=== PATIENT | female | born 1975 | race Caucasian/White ===

== ENCOUNTER 2023-02-26 08:10 | Outpatient (CLI) | payer BC, SELFPAY | END 2023-02-26 08:11 | disposition home or self-care (01) | LOC: NFLDREF 02-27 17:49 | PROVIDERS: PCP Physician Assistant Medical; Referring Provider Physician Assistant Medical; Visit Provider Physician Assistant Medical | DX: Z00.00 Encounter for general adult medical examination without abnormal findings (principal); E11.9 Type 2 diabetes mellitus without complications; E03.9 Hypothyroidism, unspecified; I10 Essential (primary) hypertension; E66.01 Morbid (severe) obesity due to excess calories; E55.9 Vitamin D deficiency, unspecified | CPT/HCPCS: 80053; 80061; 82043; 82570; 82607; 84443 ==

== ENCOUNTER 2023-05-16 08:42 | Outpatient (CLI) | payer BC, SELFPAY | END 2023-05-16 08:43 | disposition home or self-care (01) | LOC: NFLDREF 05-17 12:21 | PROVIDERS: PCP Physician Assistant Medical; Referring Provider Physician Assistant Medical; Visit Provider Physician Assistant Medical | DX: M54.12 Radiculopathy, cervical region (principal); E87.1 Hypo-osmolality and hyponatremia; E87.5 Hyperkalemia; M62.838 Other muscle spasm; E11.9 Type 2 diabetes mellitus without complications; E13.9 Other specified diabetes mellitus without complications; E66.01 Morbid (severe) obesity due to excess calories; I48.20 Chronic atrial fibrillation, unspecified | CPT/HCPCS: 83735 ==

== ENCOUNTER 2023-06-17 08:55 | Outpatient (CLI) | payer BC, SELFPAY | END 2023-06-17 08:56 | disposition home or self-care (01) | LOC: NFLDREF 06-18 10:46 | PROVIDERS: PCP Physician Assistant Medical; Referring Provider Physician Assistant Medical; Visit Provider Physician Assistant Medical | DX: M54.12 Radiculopathy, cervical region (principal) | CPT/HCPCS: 80053; 86039; 86140; 86200; 86431; 86812 ==

== ENCOUNTER 2023-06-25 09:15 | Outpatient (RCR) | payer BC, SELFPAY | END 2023-09-05 11:26 | disposition home or self-care (01) | PROVIDERS: PCP Physician Assistant Medical; Visit Provider Physician Assistant Medical | DX: M54.12 Radiculopathy, cervical region (principal); M54.2 Cervicalgia; Z51.89 Encounter for other specified aftercare | CPT/HCPCS: 97110; 97140; 97161 ==

== ENCOUNTER 2024-08-13 10:05 | Outpatient (CLI) | payer BC, SELFPAY | END 2024-08-13 10:06 | disposition home or self-care (01) | LOC: NFLDREF 08-19 01:05 | PROVIDERS: PCP Physician Assistant Medical; Visit Provider Physician Assistant Medical | DX: I10 Essential (primary) hypertension (principal); E03.9 Hypothyroidism, unspecified; E11.9 Type 2 diabetes mellitus without complications; I48.20 Chronic atrial fibrillation, unspecified; E66.01 Morbid (severe) obesity due to excess calories; F32.A Depression, unspecified; F41.9 Anxiety disorder, unspecified; J02.9 Acute pharyngitis, unspecified | CPT/HCPCS: 80053; 82043; 82570; 82607; 84443 ==

== ENCOUNTER 2024-09-07 16:38 | Outpatient (CLI) | payer BC, SELFPAY | END 2024-09-07 16:39 | disposition home or self-care (01) | LOC: NFLDUCREF 16:38 | PROVIDERS: PCP Physician Assistant Medical; Visit Provider Nurse Practitioner Family | DX: R30.0 Dysuria (principal) | CPT/HCPCS: 87086 ==

== ENCOUNTER 2024-09-19 12:06 | Emergency (ER) | payer BC, SELFPAY ==
[2024-09-19] VITALS (9 sets, daily range): BP systolic 125–154; BP diastolic 88–98; PULSE 82–111; RESP 14–20; TEMP 35.9; O2SAT 95–97; BMI 41.9
--- OUTSIDE RECORDS SUMMARY | 2024-09-19 12:08 | XMS_ITS | Clinical Summary ---
Author Organization [place] [facility] [place] [address] Care Team Providers Care Head Orthopedic Team Physician Name Role Phone Stephanie Hubbard PA-C Primary Care Provider Allergies Active Allergy Reactions Criticality Noted Date Comments Codeine Itching 08/30/2005 Paroxetine Nausea 08/28/2006 Sulfa Antibiotics Swelling 10/14/2015 tongue Medications LEVOTHYROXINE SODIUM PO Take 100 mcg by mouth daily Active OMEPRAZOLE PO Take 20 mg by mouth every morning Active AMLODIPINE BESYLATE PO Take 10 mg by mouth daily Active FLUOXETINE HCL PO Take 40 mg by mouth daily Active metoprolol succinate ER (TOPROL XL) 100 MG 24 hr tablet Take 100 mg by mouth daily Active valsartan (DIOVAN) 160 MG tablet Take 160 mg by mouth 2 times daily Active dapagliflozin (FARXIGA) 10 MG TABS tablet Take 10 mg by mouth daily Active liraglutide (VICTOZA) 18 MG/3ML solution Inject 1.2 mg Subcutaneous daily Active acetaminophen (TYLENOL) 325 MG tablet Take 325-650 mg by mouth every 6 hours as needed for mild pain Active HYDROmorphone (DILAUDID) 2 MG tabletIndications :S/P cervical spinal fusion Take 1-2 tablets (2-4 mg) by mouth every 4 hours as needed for moderate to severe pain 28 tablet 08/15/19 24 Active methocarbamol (ROBAXIN) 750 MG tabletIndications :S/P cervical spinal fusion Take 1 tablet (750 mg) by mouth every 6 hours as needed for muscle spasms (muscle spasm) 60 tablet 08/15/19 24 Active rivaroxaban ANTICOAGULANT (XARELTO) 20 MG TABS tabletIndications :Atrial fibrillation, unspecified type (H) Take 1 tablet (20 mg) by mouth daily (with dinner) 08/19/19 24 Active Social History Tobacco Use Types Packs/Day Years Used Date Smoking Tobacco: Former Cigarettes Q uit: 2006 Smokeless Tobacco: Never Tobacco Cessation:Counseling Given: Not Answered Alcohol Use Standard Drinks/Week Comments Yes 0 (1 standard drink = 0.6 oz pur e alcohol) 1-2/week Adolescent Education Answer Date Record ed Getting School Help Needed Not on file 08/08 Comments No Sex and Gender Information Value Date Recorded Sex Assigned at Not on file Legal Sex Female 4:41 AM PARCEL CARRIER Gender Identity Not on file Sexual Orientation Not on file Last Filed Vital Signs Vital Sign Reading Time Taken Comments Blood Pressure 127/63 08/16/2023 10:09 AM PARCEL CARRIER Pulse 72 08/16/2023 8:27 AM PARCEL CARRIER Temperature 36.3 C (97.3 F) 08/16/2023 7:23 AM PARCEL CARRIER Respiratory Rate 16 08/16/2023 10:2 6 AM PARCEL CARRIER Oxygen Saturation 99% 08/16/2023 8:27 AM PARCEL CARRIER Inhaled Oxygen Concentration - - Weight 112.2 kg (247 lb 4.8 oz) 08/15/2023 9:59 AM PARCEL CARRIER Height 162.6 cm (5' 4.02) 08/15/2023 9:59 AM CS T Body Mass Index 42.43 08/15/2023 9:59 AM PARCEL CARRIER Plan of Treatment Health Maintenance Due Date Last Done Comments ADVANCE CARE PLANNING 1974 ANNUAL REVIEW OF HM ORDERS 1974 CT COLONOGRAPHY 1974 FIT 1974 FLEX SIG 1974 MAMMO SCREENING 1974 TSH W/FREE T4 REFLEX 1974 sDNA (Cologuard) 1974 YEARLY PREVENTIVE VISIT 1977 COLONOSCOPY 02/05/1984 COLORECTAL CANCER SCREENING 02/05/1984 HIV SCREENING 1989 HEPATITIS C SCREENING 02/05/1992 HEPATITIS B IMMUNIZATION (1 of 3 - 19+ 3-dose series) 1993 PAP 1995 LIPID 2014 DTAP/TDAP/TD IMMUNIZATION (2 - Td or Tdap) 03/01/2018 03/01/2008, 02/10/1999 Pneumococcal Vaccine: 50+ Years (1 of 1 - PCV) 02/05/2024 ZOSTER IMMUNIZATION (1 of 2) 02/05/2024 COVID-19 Vaccine (3 - 2023- season) 2024 10/16/2020, 09/18/2020 INFLUENZA VACCINE (#1) 2024 , 05/01/2019, 06/09/2018, Additional history exists PHQ-2 (once per calendar year) 2024 GLUCOSE 08/16/2026 08/16/2023, 03/2024, 08/16/2023, Additional history exists HPV IMMUNIZATION Aged Out No longer e ligible based on patient's age to complete this topic MENINGITIS IMMUNIZATION Aged Out No l onger eligible based on patient's age to complete this topic Medical Devices Implanted Type Area Sock Knitter Device Identifier Shelf Expiration Date Model / Serial / Lot Graft Bone Putty [place] Dbm 1ml [id number] - [id number] Implanted:Qty : 1 on 08/15/2023 by Juancarlos Patterson MD at [facility] Bone/Tissue/ Biologic Left: Neck [employer] 11/27/2025 [id number] / [id number] / Modulus Cervical [id number] Implanted:Qty : 1 on 08/15/2023 by Juancarlos Patterson MD at [facility] Metallic Hardware/Anc hor Left: Neck [employer] [id number] 06/07/2027 [id number] / / [id number] Procedures Procedure Name Priority Date/Time Associated Diagnosis Comments GLUCOSE BY METER Routine 08/16/2023 1:42 AM PARCEL CARRIER from Last 3 Months or Most Recently Relevant to Health Maintenance Results * (ABNORMAL) Glucose by meter (08/16/2023 1:42 AM PARCEL CARRIER) GLUCOSE BY METER POCT 189(H) 70 - 99 mg/dL 08/16/2023 1:49 AM PARCEL CARRIER [facility] POC Blood, Capillary BLOOD SPECIMEN / Unknown 08/16/2023 1:42 AM PARCEL CARRIER 08/16/2023 1:49 AM PARCEL CARRIER Juancarlos Patterson MD [facility] POCT nal Result [facility] [address] Lab (1st floor, no room number) [place] [address], [facility] [phone] from Last 3 Months or Most Recently Relevant to Health Maintenance [place] [email or web address] [place] [email or web address] [place] [employer] Advance Directives For more information, please contact: [phone] * Full Code (Latest Code Status on File) Date Activated Date Inactivated Comments 08/15/2023 3:10 PM 08/16/2023 1:39 PM All basic and advanced life-sustaining interventions are performed as appropriate Question Answer Comments Code status determined by: Discussion with wil nt/ legal decision maker Care Teams Head Orthopedic Team Physician Relationship Specialty Start Date End Date Stephanie Hubbard PA-C [facility] [address] [place] [address] PCP - General Physician Oss Architect 08/15/23
--- OUTSIDE RECORDS SUMMARY | 2024-09-19 12:08 | XMS_ITS | Clinical Summary ---
Author Organization [facility] Address [address] [place] [id number] Care Team Providers Care Truck Trailer Final Inspector Name Role Phone Pcp, No Primary Care Provider Unavailabl e Allergies Active Allergy Reactions Criticality Noted Date Comments Codeine Itching 08/30/2005 Paroxetine Nausea Only 08/28/2006 Sulfa (Sulfonamide Antibiotics) Edema 08/30/2005 tongue swell up and gets sores in mouth Medications omeprazole (PRILOSEC) 20 mg capsuleIndication s:GERD (gastroesophageal reflux disease) Take 1 capsule by mouth once daily before a meal. DO NOT CRUSH OR CHEW 90 capsule 0 1 Active FLUoxetine (PROZAC) 40 mg capsule Take 40 mg by mouth once daily. 0 2 Active amLODIPine (NORVASC) 10 mg tablet Take 5 mg by mouth once daily. 0 3 Active levothyroxine (SYNTHROID) 100 mcg tablet Take 100 mcg by mouth before breakfast. Active diclofenac (VOLTAREN) 75 mg delayed-release tablet Take 75 mg by mouth 2 times daily with meals. Active metFORMIN (GLUCOPHAGE) 850 mg tablet Take 850 mg by mouth 2 times daily with meals. Active metoprolol succinate (TOPROL XL) 100 mg Sustained-Release tablet Take 200 mg by mouth once daily. Active digoxin (DIGOX) 125 mcg (0.125 mg) tablet Take 125 mcg by mouth once daily. Active apixaban (ELIQUIS) 5 mg tabletIndications :Atrial fibrillation with rapid ventricular response (HC) Take 1 tablet by mouth 2 times daily. 60 tablet 1 07/06/2019 3:00 PM TROLLEY WORKER 9 Active Active Problems Problem Noted Date Diagnosed Date Atrial fibrillation with rapid ventricular respo nse 07/05/2019 LV dysfunction 07/05/2019 COLLETTE on CPAP 07/05/2019 Type 2 diabetes mellitus wit hout complication, without long-term current use of insulin 07/05/2019 Morbid obesity with BMI of 45.0-49.9, adult 06/08 Polyarthritis 07/05/2019 Epigastric pain 07/05/2019 GERD (gastroesophageal reflux disease) 0 Fibromyalgia 07/21/2009 Overview (07/21/2009): Patient stated diagnosed at age 24. Had previously been thought to have Muscular Dystrophy, etc and was treated with steroids from age 8 - 12. LBP radiating to left leg 07/21/2009 Hypertension 05/09/2009 Unspecified hypothyroidism 01/27/2008 Obesity, unspecified 01/27/2008 Anxiety state, unspecified 08/28/2006 Resolved Problems Problem Noted Date Diagnosed Date Resolved Date Prediabetes 07/21/2009 07/05/2019 Immunizations Immunization Administration Dates Next Due AMB Influenza, IIV4 PF (=>6 mos Flulaval,Fluzone Fluarix)(Flu Clinic Only) 05/01/2019 Tdap 03/01/2008 Family History Medical History Relation Name Comments Hypertension Father Cancer Maternal Grandfather Bladder and Colon Cancer Maternal Grandmother cervica l, colon, skin Arthritis Mother Cancer-breast Mother Diabetes Mother Hyperlipidemia Mother Hypertension Mother Psychiatric illness Sister depressi on Relation Name Status Comments Father Alive Maternal Grandfather Maternal Grandmother Mother Alive Sister Social History Tobacco Use Types Packs/Day Years Used Date Smoking Tobacco: Former Cigarettes Q uit: 05/27/2009 Smokeless Tobacco: Never Tobacco Cessation:Counseling Given: Yes Alcohol Use Standard Drinks/Week Comments Yes 40 (1 standard drink = 0.6 oz pu re alcohol) once a month Comments No Sex and Gender Information Value Date Recorded Sex Assigned at Not on file Legal Sex Female 5:26 AM TROLLEY WORKER Gender Identity Not on file Sexual Orientation Not on file Occupation Industry Job Start Date Job End Date [employer] Not on file Not on file Not on file Not on file Not on file Not on file Not on file Obstetrics History Para Term AB IAB SAB Ectopic Multiple Livin g Live Births 1 1 1 0 0 0 0 0 1 Date Outcome GA Total Labor Labor/2nd/3rd Weight Sex Type Anes PTL Brenda A1 A5 Name Clin 07/25/19 07 Term Skyla Comments:HTN & Gest DM in Last Filed Vital Signs Vital Sign Reading Time Taken Comments Blood Pressure 143/94 07/07/2019 9:44 AM TROLLEY WORKER Pulse 76 07/07/2019 9:44 AM TROLLEY WORKER Temperature 36.8 C (98.2 F) 07/07/2019 9:44 AM TROLLEY WORKER Respiratory Rate 16 07/07/2019 9:44 AM TROLLEY WORKER Oxygen Saturation 98% 07/07/2019 9:44 AM TROLLEY WORKER Inhaled Oxygen Concentration - - Weight 121.9 kg (268 lb 11.9 oz) 07/06/2019 8:19 AM TROLLEY WORKER Height 162.6 cm (5' 4) 07/05/2019 7:46 PM TROLLEY WORKER Body Mass Index 46.13 07/05/2019 7:46 PM TROLLEY WORKER Plan of Treatment Health Maintenance Due Date Last Done Comments HIV for age 15-65 1989 BMI (ht and wt on same day) for age 18+ 02/05/1992 Hepatitis C screening for ag e 18-79 02/05/1992 Pap test for age 21-65 07/22/2016 4, 07/22/2013, 03/01/2008, Additional history exists Tetanus booster 03/01/2018 03/01/2008 Colonoscopy through age 75 2019 Lipids for age 45-75 2019 07/14/2009, 02/02/20 08 Mammogram for age 45-75 2019 Depression screening for age 12+ 07/05/2020 07/05/20 19 Pneumococcal series for age 50+ (1 of 1 - PCV) 02/05/2024 Zoster (shingles) series for age 50+ (1 of 2) 02/05/2024 COVID-19 vaccine series (1 - season) 2024 Influenza Vaccine (#1) 2024 05/01/2019 Tdap Completed 03/01/2008 Procedures Procedure Name Priority Date/Time Associated Diagnosis Comments HPV HIGH RISK Timed 07/22/2013 1:15 PM TROLLEY WORKER LIPID PANEL W REFLEX MEASURED LDL Routine 07/14/2009 9:31 AM TROLLEY WORKER Lipid Screening from Last 3 Months or Most Recently Relevant to Health Maintenance Results * HPV THIN PREP (07/22/2013 1:15 PM TROLLEY WORKER) SPECIMEN/SOURC E Thin prep [facility] HPV RESULTS High Risk HPV Negative. HPV types 16,18,31, 33,35,39, 45,51,52, 56,58,59, 66 and 68 DNA were undetecta ble or below the pre-set threshold . Methodolo gy: Shiloh Dustin 4800 HPV Test [facility] 07/22/2013 1:15 PM TROLLEY WORKER 07/23/2013 1:39 PM TROLLEY WORKER us Paige Delgado DO MICROBIOLOGY Justine l Result [facility] [place]NAL ZIP [address] [place] [id number] * (ABNORMAL) LIPID PANEL W REFLEX MEASURED LDL (07/14/2009 9:31 AM TROLLEY WORKER) CHOLESTEROL,TOTAL 153 110 - 199 mg/dL [facility] TRIGLYCERIDES 186(H) <150 mg/dL [facility] HDL CHOLESTEROL 36(L) >40 mg/dL [facility] CHOL/HDL RATIO 4.25 <4.51 [facility] LDL CHOLESTEROL 80 <131 mg/dL [facility] PATIENT STATUS Fasting [facility] Blood specimen (specimen) BLOOD SPECIMEN / Unknown 07/14/2009 9:31 AM TROLLEY WORKER 07/14/2009 9:26 AM TROLLEY WORKER Stanislav Yi MD CHEMISTRY Final Result [facility] [address] [place] [address] from Last 3 Months or Most Recently Relevant to Health Maintenance Insurance [facility] Advance Directives * Full Code (Latest Code Status on File) Date Activated Date Inactivated Comments 07/05/2019 8:12 PM 07/07/2019 4:00 PM Question Answer Comments Code Status Discussion: Per Advance Care Plan * Full Code Date Activated Date Inactivated Comments 09/03/2005 11:26 AM 09/04/2005 4:41 PM * Full Code Date Activated Date Inactivated Comments 09/03/2005 6:10 AM 09/03/2005 11:26 AM Care Teams Truck Trailer Final Inspector Relationship Specialty Start Date End Date Pcp, No . PCP - General 08/06/13
--- NOTE | 2024-09-19 12:13 | ED.GENADULT ---
HPI - General Adult General Chief complaint: Arrhythmia/Palpitations Stated complaint: poss afib Time Seen by Provider: 09/19/24 12:13 History of Present Illness HPI narrative: Pt here for eval of episodes of palpitations, dizziness, medial CP-- states this feels exactly like previous episodes of afib. Last episode was 2- 3yrs ago, on Xarelto, Metoprolol, Amlodipine, Valsartan. Denies SOB, fevers. Does endorse improving cough x1mo. CP, dizziness worsen with exertion and transitions. 49-year-old woman presenting to the emergency department with concern atrial fibrillation. Over the last 24 hours or so has just been feeling ?blah. Initially described as dizziness really sounds to be more like intermittently lightheaded. During our conversation I see that she is having isolated PVCs on monitor. These appear to be asymptomatic. Has also had a lingering cough over the last month. She had some chest pain on lower right to left chest starting last night. Not currently present. Struggle with nausea but would relate that to [place]. Has waves of nausea throughout the day. Is concerned that might be in atrial fibrillation again. EKG is being done when I initially go to meet her. Does not look to be in AFib however 2 PVCs are noted in the duration of the EKG. Related Data Home Medications ?Medication ?Instructions ?Recorded ?Confirmed lancets (Microlet Lancet) 02/01/22 08/13/24 calcium, magnesiu, zinc PO .HS 02/13/23 08/13/24 Previous Rx's ?Medication ?Instructions ?Recorded pen needle, diabetic 31 gauge x #100 ea 05/16/2307/11 (CareFine Pen Needle) omeprazole 20 mg tablet,delayed 20 mg PO QDAY #90 tabs 02/12/24 release valsartan 160 mg tablet 160 mg PO BID #180 tabs 02/12/24 blood-glucose meter,continuous #1 ea 07/13/24 (Dexcom G6 Reservations Specialist) albuterol sulfate 90 mcg/actuation 2 puff inhalation Q4-6H PRN 08/08/24 aerosol inhaler shortness of breath or wheezing #8.5 grams amlodipine 10 mg tablet 10 mg PO DAILY #90 tabs 08/13/24 blood-glucose sensor (Dexcom G6 #9 ea 08/13/24 Sensor device) blood-glucose transmitter (Dexcom #1 ea 08/13/24 G6 Transmitter device) fluoxetine 40 mg capsule 40 mg PO QDAY #90 caps 08/13/24 levothyroxine 100 mcg tablet 100 mcg PO QDAY #90 tabs 08/13/24 metoprolol succinate 100 mg 100 mg PO DAILY #90 tabs 08/13/24 tablet,extended release 24 hr tirzepatide 10 mg/0.5 mL 10 mg (0.5 mL) subcut QWEEK #2 mL 08/13/24 subcutaneous pen injector (Jordan) blood sugar diagnostic (Contour #50 ea 08/14/24 Next Test Strips) blood-glucose meter (Contour Next #1 ea 08/14/24 Gen Meter) rivaroxaban 20 mg tablet (Xarelto) 20 mg PO QDAY #90 tabs 08/27/24 Allergies Allergy/AdvReac Type Severity Reaction Status Date / Time codeine Allergy itching Verified 09/19/24 12:26 paroxetine AdvReac Nausea Verified 09/19/24 12:26 Sulfa (Sulfonamide AdvReac swelling Verified 09/19/24 12:26 Antibiotics) of tongue Review of Systems Status of ROS: Reports: 6 or more systems reviewed and unremarkable except as noted in History and below [facility] Medical History History of trigger finger ?Z87.39 - Personal history of other diseases of the musculoskeletal system and connective tissue (ICD-10) Plantar fasciitis, bilateral ?M72.2 - Plantar fascial fibromatosis (ICD-10) History of fracture of ankle (1987) ?Z87.81 - Personal history of (healed) traumatic fracture (ICD-10) Surgical History Hx of cervical discectomy (~09/2023) ?Z98.890 - Other specified postprocedural states (ICD-10) Status post laparoscopic assisted vaginal hysterectomy ?Z90.710 - Acquired absence of both cervix and uterus (ICD-10) Status post carpal tunnel release of both wrists (1982) ?Z98.890 - Other specified postprocedural states (ICD-10) History of tonsillectomy (1982) ?Z90.89 - Acquired absence of other organs (ICD-10) History of excision of dermoid cyst (2007) ?Z98.890 - Other specified postprocedural states (ICD-10) ?Z86.018 - Personal history of other benign neoplasm (ICD-10) History of cryosurgery ?Z98.890 - Other specified postprocedural states (ICD-10) History of cholecystectomy (2009) ?Z90.49 - Acquired absence of other specified parts of digestive tract (ICD-10) History of bilateral breast reduction surgery (2005) ?Z98.890 - Other specified postprocedural states (ICD-10) History of arthroscopy of right knee (2013) ?Z98.890 - Other specified postprocedural states (ICD-10) Family History Brother Anxiety disorder Mother Anxiety disorder Breast cancer in female Colon cancer Diabetes Sister Anxiety disorder Maternal Grandfather Colon cancer Family/Other Rheumatoid arthritis Social History Narrative: Non-smoker- stopped 2010, 20 years about 5 cig day Significant other, 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 Of good energy. Cranial nerves 2-12 intact. Oropharynx is moist. Lungs are clear. Tattoo on the left upper back. These are well perfused without edema. No pain to palpation over the anterior chest. Heart in little elevated rate in a regular rhythm. Distant. Abdomen is soft. Little tender along the left anterior rib margin. She would attribute this to some coughing recently. Const: Vital Signs, click to edit/add: Vital Signs - 24 hr 09/19/24 12:28 09/19/24 12:47 09/19/24 12:58 Temperature 96.6 F L Pulse Rate 98 Pulse Rate [Pulse Oximeter] 97 Pulse Rate [orthos tatic lying] 82 Pulse Rate [orthos tatic sitting] 97 Pulse Rate [orthos tatic standing] 106 H Respiratory Rate 16 18 Blood Pressure 132/98 H Blood Pressure [Ri ght Upper Arm] 150/97 H Blood Pressure [or thostatic lying] 128/88 Blood Pressure [or thostatic sitting] 126/94 H Blood Pressure [or thostatic standing ] 129/95 H Pulse Oximetry 97 97 Oxygen Delivery Me thod Room Air 09/19/24 13:01 09/19/24 13:32 09/19/24 14:01 Temperature Pulse Rate 97 95 111 H Pulse Rate [Pulse Oximeter] Pulse Rate [orthos tatic lying] Pulse Rate [orthos tatic sitting] Pulse Rate [orthos tatic standing] Respiratory Rate 16 14 16 Blood Pressure 154/98 H 125/92 H 140/93 H Blood Pressure [Ri ght Upper Arm] Blood Pressure [or thostatic lying] Blood Pressure [or thostatic sitting] Blood Pressure [or thostatic standing ] Pulse Oximetry 96 97 96 Oxygen Delivery Me thod 09/19/24 14:30 09/19/24 15:01 09/19/24 15:46 Temperature Pulse Rate 97 91 101 H Pulse Rate [Pulse Oximeter] Pulse Rate [orthos tatic lying] Pulse Rate [orthos tatic sitting] Pulse Rate [orthos tatic standing] Respiratory Rate 19 20 14 Blood Pressure 145/90 H Blood Pressure [Ri ght Upper Arm] Blood Pressure [or thostatic lying] Blood Pressure [or thostatic sitting] Blood Pressure [or thostatic standing ] Pulse Oximetry 95 96 96 Oxygen Delivery Me thod Documenting provider has reviewed patient's vital signs: yes Course Vital Signs Vital signs: Initial Vital Signs Temperature 96.6 F L 09/19/24 12:28 Temperature Source Temporal Artery Scan 09/19/24 12:28 Pulse Rate 97 09/19/24 12:28 Pulse Rhythm Regular 09/19/24 12:28 Respiratory Rate 16 09/19/24 12:28 Blood Pressure 150/97 H 09/19/24 12:28 Blood Pressure Mean 114 H 09/19/24 12:28 Blood Pressure Position Sitting 09/19/24 12:28 Pulse Oximetry 97 09/19/24 12:28 Oxygen Delivery Method Room Air 09/19/24 12:28 Vital Signs Temperature 96.6 F L 09/19/24 12:28 Pulse Rate 97 09/19/24 12:28 Respiratory Rate 16 09/19/24 12:28 Blood Pressure 150/97 H 09/19/24 12:28 Pulse Oximetry 97 09/19/24 12:28 Oxygen Delivery Method Room Air 09/19/24 12:28 Temperature 96.6 F L 09/19/24 12:28 Pulse Rate 101 H 09/19/24 15:46 Respiratory Rate 14 09/19/24 15:46 Blood Pressure 145/90 H 09/19/24 15:01 Pulse Oximetry 96 09/19/24 15:46 Oxygen Delivery Method Room Air 09/19/24 12:28 Medications Administered Medications: Discontinued Medications Generic Name Dose Route Start Last Admin Trade Name Stewartq PRN Reason Stop Dose Admin Sodium Chloride 1,000 mls @ 1,200 mls/hr 09/19/24 14:26 09/19/24 15:27 0.9 % Sodium Chloride 1000 Ml IV 09/19/24 15:15 Infused .Q50M ONE Infusion Medical Decision Making MDM Narrative Medical decision making narrative: Will be watching on school bus monitor for any runs of AFib further tachyarrhythmia. Is not in atrial fibrillation today. Again clarified that is not actually dizzy until focus on cardiovascular. Check orthostatics. Screen for COVID influenza. Check electrolytes. Will watch for cardiovascular injury as well. orthostatics are positive for pulse and becomes lightheaded upon standing Symptoms improved after L of normal saline. Ambulating through the emergency department without difficulty. Labs rather to be unremarkable although sodium was 128. This is a decrease from 136 5 weeks ago. No events on monitor beyond asymptomatic PVCs. Did receive a L normal saline as noted with improvement in symptoms. Presumably would have put her sodium at about 130. Two-view chest x-ray independently reviewed by me is without apparent abnormality, normal cardiac silhouette. No infiltrate. Feels well and ready to leave the emergency department. Not sure why your sodium is low today. Stay well-hydrated. However, over the next week would consider continuing with reconstituted powdered Gatorade or Powerade as opposed to only straight water. I believe there some lower sugar versions. Would follow up for recheck of labs in 7-10 days. Return for increasing, persistent chest pain, worsening lightheadedness, intractable vomiting diarrhea. Medical Records Medical records reviewed: Yes I reviewed the patient's medical records Lab Data Labs: Lab Results 09/19/24 09/19/24 Range/Units 13:34 14:00 WBC 5.50 (4.50-11.00) K/uL RBC 4.87 (4.00-5.20) m/uL Hgb 15.2 (12.0-16.0) gm/dL Hct 44.5 (33.0-51.0) % MCV 91 (80-100) fL MCH 31 (26-34) pg MCHC 34 (32-36) gm/dL RDW Coeff of Baljeet 11.4 L (11.5-15.5) % Plt Count 249 (140-440) K/uL Neut % (Auto) 63.6 (42.0-72.0) % Lymph % (Auto) 24.4 (20-44) % [place] % (Auto) 10.7 (0.0-11.0) % Eos % (Auto) 0.7 (0.0-7.0) % Baso % (Auto) 0.4 (0.0-3.0) % Neut # (Auto) 3.50 (1.7-7.0) K/uL Lymph # (Auto) 1.34 (0.90-2.90) K/uL [place] # (Auto) 0.60 (0.00-0.90) K/UL Eos # (Auto) 0.04 (0.00-0.50) K/uL Baso # (Auto) 0.02 (0.00-0.30) K/uL Abs Immat Gran (auto) 0.01 (0.00-0.30) K/uL Imm/Tot Granulo (auto) 0.2 % Sodium 128 L (135-149) mmol/L Potassium 4.6 (3.6-5.1) mmol/L Chloride 89 L (96-114) mmol/L Carbon Dioxide 29 (20-32) mmol/L Anion Gap 10 (7-15) mEq/L BUN 10 (7-30) mg/dL Creatinine 0.6 (0.5-1.5) mg/dL Estimated Creat Clear 92.79 Estimated GFR 109 ml/min Glucose 147 H (60-115) mg/dL Calcium 9.8 (8.4-10.6) mg/dL Troponin I < 0.01 L (0.01-0.04) ng/mL C-Reactive Protein < 0.5 L (0.5-1.0) mg/dL Urine Color Yellow (Yellow) Urine Appearance Slightly Cloudy A (Clear) Urine pH 7.0 (5.0-8.5) Ur Specific [place] 1.015 (1.000-1.030) Urine Protein Negative (Negative) Urine Glucose (UA) Negative (Negative) Urine Ketones Negative (Negative) Urine Blood Trace-intact A (Negative) Urine Nitrite Negative (Negative) Urine Bilirubin Negative (Negative) Urine Urobilinogen 0.2 (0.2-1.0) Ur Leukocyte Esterase Negative (Negative) Urine RBC 0-2 (0-2) Urine WBC 0-2 (0-5) Ur Squamous Epith Cells Moderate A (None-Few) Urine Bacteria Few A (None) Discharge Plan Discharge Clinical Impression: Orthostatic lightheadedness, Hyponatremia Patient Disposition: Home w/ Parent or Adult Condition: Improved Additional Instructions: Not sure why your sodium is low today. Stay well-hydrated. However, over the next week would consider continuing with reconstituted powdered Gatorade or Powerade as opposed to only straight water. I believe there some lower sugar versions. Would follow up for recheck of labs in 7-10 days. Return for increasing, persistent chest pain, worsening lightheadedness, intractable vomiting diarrhea. Prescriptions: No Action calcium, magnesiu, zinc PO .HS albuterol sulfate 90 mcg/actuation HFA aerosol inhaler 2 puff inhalation Q4-6H PRN (Reason: shortness of breath or wheezing) Qty: 8.5 0RF (DME) pen needle, diabetic [CareFine Pen Needle] 31 gauge x 1/4 needle See Rx Instructions .MEDSUPPLY Qty: 100 3RF Rx Instructions: As directed- with victoza pen metoprolol succinate 100 mg tablet extended release 24 hr 100 mg PO DAILY Qty: 90 1RF levothyroxine 100 mcg tablet 100 mcg PO QDAY Qty: 90 1RF fluoxetine 40 mg capsule 40 mg PO QDAY Qty: 90 1RF amlodipine 10 mg tablet 10 mg PO DAILY Qty: 90 1RF Mounjaro 10 mg/0.5 mL pen injector 10 mg subcut QWEEK Qty: 2 2RF Rx Instructions: once weekly (DME) lancets [Microlet Lancet] Misc See Rx Instructions .Route Rx Instructions: As directed omeprazole 20 mg tablet,delayed release (DR/EC) 20 mg PO QDAY Qty: 90 1RF valsartan 160 mg tablet 160 mg PO BID Qty: 180 1RF (DME) Dexcom G6 Reservations Specialist Misc See Rx Instructions .MEDSUPPLY Qty: 1 0RF Rx Instructions: As directed for coninuous glucose monitoring (DME) Dexcom G6 Sensor Device See Rx Instructions .MEDSUPPLY Qty: 9 3RF Rx Instructions: As directed- continuous for diabetes (DME) Dexcom G6 Transmitter Device See Rx Instructions .MEDSUPPLY Qty: 1 0RF Rx Instructions: As directed continuous for diabetes (DME) blood-glucose meter [Contour Next Gen Meter] Misc See Rx Instructions .Route Qty: 1 0RF Rx Instructions: As directed (DME) Contour Next Test Strips Strip See Rx Instructions .Route Qty: 50 3RF Rx Instructions: As needed, when not using dexcom Xarelto 20 mg tablet 20 mg PO QDAY Qty: 90 1RF Rx Instructions: must administer with evening meal Follow Up/Referrals: Stephanie Hubbard PA-C [Primary Care Provider] - Stand Alone Forms: MyHealth Info Instructions
[2024-09-19 13:50] LABS: Basophils Absolute Auto 0.02 K/uL (0.00-0.30); Basophils Percent Auto 0.4 % (0.0-3.0); Eosinophils Absolute Auto 0.04 K/uL (0.00-0.50); Eosinophils Percent Auto 0.7 % (0.0-7.0); Hematocrit 44.5 % (33.0-51.0); Hemoglobin* 15.2 gm/dL (12.0-16.0); Immature Granulocytes Abs Auto 0.01 K/uL (0.00-0.30); Immature Granulocytes Pct Auto 0.2 %; Lymphocytes Absolute Auto 1.34 K/uL (0.90-2.90); Lymphocytes Percent Auto 24.4 % (20-44); Mean Corpuscular HGB Conc 34 gm/dL (32-36); Mean Corpuscular Hemoglobin 31 pg (26-34); Mean Corpuscular Volume 91 fL (80-100); Monocytes Percent Auto 10.7 % (0.0-11.0); Neutrophils Percent Auto 63.6 % (42.0-72.0); Platelet Count* 249 K/uL (140-440); RDW Coefficient of Variation % 11.4 % (11.5-15.5); Red Blood Count 4.87 m/uL (4.00-5.20)
[2024-09-19 13:53] LABS: Slide Review Reflex No
[2024-09-19 13:57] LABS: Chloride* 89 mmol/L (96-114); Sodium* 128 mmol/L (135-149)
--- OUTSIDE RECORDS SUMMARY | 2024-09-19 13:57 | XMS_ITS | Clinical Summary ---
Author Organization [place] Address [facility] [place] [address] Care Team Providers Care Production Weigher Name Role Phone Stephanie Hubbard PA-C Primary [...] on file Legal Sex Female 4:41 AM WINDER TENDER Gender Identity Not on file Sexual Orientation Not on file Last Filed Vital Signs Vital Sign Reading Time Taken Comments Blood Pressure 127/63 08/16/2023 10:09 AM WINDER TENDER Pulse 72 08/16/2023 8:27 AM WINDER TENDER Temperature 36.3 C (97.3 F) 08/16/2023 7:23 AM WINDER TENDER Respiratory Rate 16 08/16/2023 10:2 6 AM WINDER TENDER Oxygen Saturation 99% 08/16/2023 8:27 AM WINDER TENDER Inhaled Oxygen Concentration - - Weight 112.2 kg (247 lb 4.8 oz) 08/15/2023 9:59 AM WINDER TENDER Height 162.6 cm (5' 4.02) 08/15/2023 9:59 AM CS T Body Mass Index 42.43 08/15/2023 9:59 AM WINDER TENDER Plan of Treatment Health Maintenance Due Date [...] this topic Medical Devices Implanted Type Area Steward/Stewardess [employer] Car Device Identifier Shelf Expiration Date Model / Serial / Lot Graft Bone Putty Price Dbm 1ml [id number] - [id number] Implanted:Qty : 1 on 08/15/2023 by Juancarlos Patterson MD at [facility] Bone/Tissue/ Biologic Left: Neck [employer] 11/27/2025 [id number] / [id number] / Modulus Cervical [id number] Degrees Implanted:Qty : 1 on 08/15/2023 by Juancarlos Patterson MD at [facility] Metallic Hardware/Anc hor Left: Neck NUV[employer]IVE [id number] 06/07/2027 [id number] / / [id number] Procedures Procedure Name Priority Date/Time Associated Diagnosis Comments GLUCOSE BY METER Routine 08/16/2023 1:42 AM WINDER TENDER from Last 3 Months or Most Recently Relevant to Health Maintenance Results * (ABNORMAL) Glucose by meter (08/16/2023 1:42 AM WINDER TENDER) GLUCOSE BY METER POCT 189(H) 70 - 99 mg/dL 08/16/2023 1:49 AM WINDER TENDER [facility] POC Blood, Capillary BLOOD SPECIMEN / Unknown 08/16/2023 1:42 AM WINDER TENDER 08/16/2023 1:49 AM WINDER TENDER [facility] Patterson [facility] PO[facility] nal Result [facility] Acute Care Lab [address] Lab (1st floor, no room number) [place] [address], [facility] [phone] from Last 3 Months or Most Recently Relevant to Health Maintenance [place] Advance Directives For more information, please contact: [phone] * Full Code (Latest Code Status on File) Date Activated Date Inactivated Comments 08/15/2023 3:10 PM 08/16/2023 1:39 PM All basic and advanced life-sustaining interventions are performed as appropriate Question Answer Comments Code status determined by: Discussion with wil nt/ legal decision maker Care Teams Production Weigher Relationship Specialty Start Date End Date Stephanie Hubbard PA-C [facility] [address] [place] [address] PCP - General Physician Life Consultant 08/15/23
--- OUTSIDE RECORDS SUMMARY | 2024-09-19 13:57 | XMS_ITS | Clinical Summary ---
Author Organization [facility] Address [address] [place] [address] Care Team Providers Care Senior Designer/Art Director Name Role Phone Pcp, No Primary Care [...] daily. 60 tablet 1 07/06/2019 3:00 PM TRIMMER SORTER 9 Active Active Problems Problem Noted Date [...] on file Legal Sex Female 5:26 AM TRIMMER SORTER Gender Identity Not on file Sexual Orientation Not on file Occupation Industry Job Start Date Job End Date [employer] Not on file Not on file Not on file Not on file Not on file Not on file Not on file Obstetrics History Para Term AB IAB SAB Ectopic Multiple Livin g Live Births 1 1 1 0 0 0 0 0 1 Date Outcome GA Total Labor Labor/2nd/3rd Weight Sex Type Anes PTL Rbenda A1 A5 Name Clin 07/25/19 07 Term Skyla Comments:HTN & Gest DM in Last Filed Vital Signs Vital Sign Reading Time Taken Comments Blood Pressure 143/94 07/07/2019 9:44 AM TRIMMER SORTER Pulse 76 07/07/2019 9:44 AM TRIMMER SORTER Temperature 36.8 C (98.2 F) 07/07/2019 9:44 AM TRIMMER SORTER Respiratory Rate 16 07/07/2019 9:44 AM TRIMMER SORTER Oxygen Saturation 98% 07/07/2019 9:44 AM TRIMMER SORTER Inhaled Oxygen Concentration - - Weight 121.9 kg (268 lb 11.9 oz) 07/06/2019 8:19 AM TRIMMER SORTER Height 162.6 cm (5' 4) 07/05/2019 7:46 PM TRIMMER SORTER Body Mass Index 46.13 07/05/2019 7:46 PM TRIMMER SORTER Plan of Treatment Health Maintenance Due Date [...] HPV HIGH RISK Timed 07/22/2013 1:15 PM TRIMMER SORTER LIPID PANEL W REFLEX MEASURED LDL Routine 07/14/2009 9:31 AM TRIMMER SORTER Lipid Screening from Last 3 Months or Most Recently Relevant to Health Maintenance Results * HPV THIN PREP (07/22/2013 1:15 PM TRIMMER SORTER) SPECIMEN/SOURC E Thin prep [facility] HPV RESULTS High Risk HPV Negative. HPV types 16,18,31, 33,35,39, 45,51,52, 56,58,59, 66 and 68 DNA were undetecta ble or below the pre-set threshold . Methodolo gy: Shiloh Dusitn 4800 HPV Test [facility] 07/22/2013 1:15 PM TRIMMER SORTER 07/23/2013 1:39 PM TRIMMER SORTER us Paige Delgado DO MICROBIOLOGY Justine l Result [facility] INTERNAL ZIP [address] [place] [address] * (ABNORMAL) LIPID PANEL W REFLEX MEASURED LDL (07/14/2009 9:31 AM TRIMMER SORTER) CHOLESTEROL,TOTAL 153 110 - 199 mg/dL [facility] TRIGLYCERIDES 186(H) <150 mg/dL [facility] HDL CHOLESTEROL 36(L) >40 mg/dL [facility] CHOL/HDL RATIO 4.25 <4.51 [facility] LDL CHOLESTEROL 80 <131 mg/dL [facility] PATIENT STATUS Fasting [facility] Blood specimen (specimen) BLOOD SPECIMEN / Unknown 07/14/2009 9:31 AM TRIMMER SORTER 07/14/2009 9:26 AM TRIMMER SORTER Stanislav Yi MD CHEMISTRY Final Result [facility] [address] [place] [address] from Last 3 Months or Most Recently Relevant to Health Maintenance Insurance [facility] Advance Directives * Full Code (Latest Code Status on File) Date Activated Date Inactivated Comments 07/05/2019 8:12 PM 07/07/2019 4:00 PM Question Answer Comments Code Status Discussion: Per Advance Care Plan * Full Code Date Activated Date Inactivated Comments 09/03/2005 11:26 AM 09/04/2005 4:41 PM * Full Code Date Activated Date Inactivated Comments 09/03/2005 6:10 AM 09/03/2005 11:26 AM Care Teams Senior Designer/Art Director Relationship Specialty Start Date End Date Pcp, No . PCP - General 08/06/13
[2024-09-19 13:58] LABS: Potassium* 4.6 mmol/L (3.6-5.1)
[2024-09-19 14:00] LABS: Blood Urea Nitrogen* 10 mg/dL (7-30); Creatinine* 0.6 mg/dL (0.5-1.5); Est. Creatinine Clearance* 92.79; Estimated Glomerular Filt Rate 109 ml/min
[2024-09-19 14:01] LABS: Anion Gap 10 mEq/L (7-15); Calcium* 9.8 mg/dL (8.4-10.6); Carbon Dioxide* 29 mmol/L (20-32); Glucose* 147 mg/dL (60-115)
[2024-09-19 14:11] LABS: Appearance Urine Slightly Cloudy (Clear); Bilirubin Urine Negative (Negative); Blood Urine Trace-intact (Negative); Color Urine Yellow (Yellow); Glucose Urine Negative (Negative); Ketones Urine Negative (Negative); Leukocyte Esterase Urine Negative (Negative); Nitrite Urine Negative (Negative); Protein Urine Negative (Negative); Specific Gravity Urine 1.015 (1.000-1.030); Urobilinogen Urine 0.2 (0.2-1.0)
[2024-09-19 14:15] LABS: C Reactive Protein* < 0.5 mg/dL (0.5-1.0); Troponin I* < 0.01 ng/mL (0.01-0.04)
[2024-09-19 14:22] LABS: Bacteria Urine Few; RBC Urine 0-2 (0-2); Squamous Epithelial Cell Urine Moderate (None-Few); WBC Urine 0-2 (0-5)
[2024-09-19] MEDS: 0.9 % SODIUM CHLORIDE 1000 ml 1,000 ML 1200 ML IV (14:37)
--- NOTE | 2024-09-19 15:32 | CRLHL7_ITS ---
For Patients: As a result of the Cures Act, medical imaging exams and procedure reports are released immediately into your electronic medical record. You may view this report before your referring provider. If you have questions, please contact your health care provider. INDICATION: Cough for the last 1 month Comparison: Two-view chest 08/08/2024 TECHNIQUE: Two view chest. FINDINGS: The lungs are clear. The heart, mediastinum and pulmonary vessels are of normal size. There is no evidence of pleural disease. IMPRESSION: Negative chest. Dictated by Snow Pineda MD @ 09/19/2024 4:06:02 PM (Electronically Signed)
== END 2024-09-19 16:00 | disposition home or self-care (01) ==
PROVIDERS: Emergency Provider Family Medicine; PCP Physician Assistant Medical
DX: I95.1 Orthostatic hypotension (principal); E87.1 Hypo-osmolality and hyponatremia
CPT/HCPCS: 36415; 71046; 80048; 81001; 84484; 85025; 86140; 87086; 93005; 99284; J7030

== ENCOUNTER 2024-11-28 08:21 | Emergency (ER) | payer BC, SELFPAY ==
--- OUTSIDE RECORDS SUMMARY | 2024-11-28 08:24 | XMS_ITS | Clinical Summary ---
Author Organization [place] Address Formerly [facility] [place] [address] Care Team Providers Care Crusher Tender Name Role Phone Stephanie Hubbard PA-C Primary [...] on file Legal Sex Female 4:41 AM STACKER OPERATOR Gender Identity Not on file Sexual Orientation Not on file Last Filed Vital Signs Vital Sign Reading Time Taken Comments Blood Pressure 127/63 08/16/2023 10:09 AM STACKER OPERATOR Pulse 72 08/16/2023 8:27 AM STACKER OPERATOR Temperature 36.3 C (97.3 F) 08/16/2023 7:23 AM STACKER OPERATOR Respiratory Rate 16 08/16/2023 10:2 6 AM STACKER OPERATOR Oxygen Saturation 99% 08/16/2023 8:27 AM STACKER OPERATOR Inhaled Oxygen Concentration - - Weight 112.2 kg (247 lb 4.8 oz) 08/15/2023 9:59 AM STACKER OPERATOR Height 162.6 cm (5' 4.02) 08/15/2023 9:59 AM CS T Body Mass Index 42.43 08/15/2023 9:59 AM STACKER OPERATOR Plan of Treatment Health Maintenance Due Date [...] (3 - 2023- season) 2024 10/16/2020, 09/18/2020 PHQ-2 (once per calendar year) 2024 INFLUENZA VACCINE (Season Ended) 2025 05/05/2020, 05/01/2019, 06/09/2018, Additional history exists DIABETES SCREENING 08/16/2026 08/16/2023, 0 08/16/2023, 08/16/2023, Additional history exists HPV IMMUNIZATION Aged Out No longer e ligible based on patient's age to complete this topic MENINGITIS IMMUNIZATION Aged Out No l onger eligible based on patient's age to complete this topic Medical Devices Implanted Type Area Scratch Polisher Device Identifier Shelf Expiration Date Model / Serial / Lot Graft Bone Putty [place] Dbm 1ml [id number] - [id number] Implanted:Qty : 1 on 08/15/2023 by Juancarlos Patterson MD at [facility] Bone/Tissue/ Biologic Left: Neck [employer] 11/27/2025 [id number] / [id number] / Modulus Cervical [id number] Degrees Implanted:Qty : 1 on 08/15/2023 by Juancarlos Patterson MD at [facility] Metallic Hardware/Anc hor Left: Neck NUVASIVE [id number] 06/07/2027 [id number] / / [id number] Procedures Procedure Name Priority Date/Time Associated Diagnosis Comments GLUCOSE BY METER Routine 08/16/2023 1:42 AM STACKER OPERATOR from Last 3 Months or Most Recently Relevant to Health Maintenance Results * (ABNORMAL) Glucose by meter (08/16/2023 1:42 AM STACKER OPERATOR) GLUCOSE BY METER POCT 189(H) 70 - 99 mg/dL 08/16/2023 1:49 AM STACKER OPERATOR [facility] POC Blood, Capillary BLOOD SPECIMEN / Unknown 08/16/2023 1:42 AM STACKER OPERATOR 08/16/2023 1:49 AM STACKER OPERATOR Juancarlos Patterson MD LAB - [facility] POCT nal Result [facility] [address] Lab (1st floor, no room number) [place] [address], [place] [phone] from Last 3 Months or Most Recently Relevant to Health Maintenance [place] Advance Directives For more information, please contact: [phone] * Full Code (Latest Code Status on File) Date Activated Date Inactivated Comments 08/15/2023 3:10 PM 08/16/2023 1:39 PM All basic and advanced life-sustaining interventions are performed as appropriate Question Answer Comments Code status determined by: Discussion with wil nt/ legal decision maker Care Teams Crusher Tender Relationship Specialty Start Date End Date Stephanie Hubbard PA-C [facility] [address] [place] [address] PCP - General Physician Health Safety Manager 08/15/23
--- OUTSIDE RECORDS SUMMARY | 2024-11-28 08:24 | XMS_ITS | Clinical Summary ---
Author Organization [facility] Address [address] [place] [id number] Care Team Providers Care Services Rep Name Role Phone Pcp, No Primary Care [...] daily. 60 tablet 1 07/06/2019 3:00 PM COMMERCIAL REAL ESTATE APPRAISER 9 Active Active Problems Problem Noted Date [...] on file Legal Sex Female 5:26 AM COMMERCIAL REAL ESTATE APPRAISER Gender Identity Not on file Sexual Orientation Not on file Occupation Industry Job Start Date Job End Date [employer] Not on file Not on file Not [...] Comments Blood Pressure 143/94 07/07/2019 9:44 AM COMMERCIAL REAL ESTATE APPRAISER Pulse 76 07/07/2019 9:44 AM COMMERCIAL REAL ESTATE APPRAISER Temperature 36.8 C (98.2 F) 07/07/2019 9:44 AM COMMERCIAL REAL ESTATE APPRAISER Respiratory Rate 16 07/07/2019 9:44 AM COMMERCIAL REAL ESTATE APPRAISER Oxygen Saturation 98% 07/07/2019 9:44 AM COMMERCIAL REAL ESTATE APPRAISER Inhaled Oxygen Concentration - - Weight 121.9 kg (268 lb 11.9 oz) 07/06/2019 8:19 AM COMMERCIAL REAL ESTATE APPRAISER Height 162.6 cm (5' 4) 07/05/2019 7:46 PM COMMERCIAL REAL ESTATE APPRAISER Body Mass Index 46.13 07/05/2019 7:46 PM COMMERCIAL REAL ESTATE APPRAISER Plan of Treatment Health Maintenance Due Date Last Done Comments HIV for age 15-65 1989 BMI (ht and wt on same day) for age 18+ 02/05/1992 Hepatitis C screening for ag e 18-79 02/05/1992 Hepatitis B series for 19+ ( 1 of 3 - 19+ 3-dose series) 1993 Pap test for age 21-65 07/22/2016 4, [...] series (1 - season) 2024 Influenza Vaccine (Season Ended) 2025 05/01/20 19 Tdap Completed 03/01/2008 Procedures Procedure Name Priority Date/Time Associated Diagnosis Comments HPV HIGH RISK Timed 07/22/2013 1:15 PM COMMERCIAL REAL ESTATE APPRAISER LIPID PANEL W REFLEX MEASURED LDL Routine 07/14/2009 9:31 AM COMMERCIAL REAL ESTATE APPRAISER Lipid Screening from Last 3 Months or Most Recently Relevant to Health Maintenance Results * HPV THIN PREP (07/22/2013 1:15 PM COMMERCIAL REAL ESTATE APPRAISER) SPECIMEN/SOURC E Thin prep [facility] HPV RESULTS High Risk HPV Negative. HPV types 16,18,31, 33,35,39, 45,51,52, 56,58,59, 66 and 68 DNA were undetecta ble or below the pre-set threshold . Methodolo gy: Shiloh Dustin 4800 HPV Test [facility] 07/22/2013 1:15 PM COMMERCIAL REAL ESTATE APPRAISER 07/23/2013 1:39 PM COMMERCIAL REAL ESTATE APPRAISER us Paige Delgado DO MICROBIOLOGY Justine l Result [facility] INTERNAL ZIP [id number] [address] [place] [id number] * (ABNORMAL) LIPID PANEL W REFLEX MEASURED LDL (07/14/2009 9:31 AM COMMERCIAL REAL ESTATE APPRAISER) CHOLESTEROL,TOTAL 153 110 - 199 mg/dL [facility] TRIGLYCERIDES 186(H) <150 mg/dL [facility] HDL CHOLESTEROL 36(L) >40 mg/dL [facility] CHOL/HDL RATIO 4.[address] [facility] LDL CHOLESTEROL 80 <131 mg/dL [facility] PATIENT STATUS Fasting [facility] Blood specimen (specimen) BLOOD SPECIMEN / Unknown 07/14/2009 9:31 AM COMMERCIAL REAL ESTATE APPRAISER 07/14/2009 9:26 AM COMMERCIAL REAL ESTATE APPRAISER us Stanislav Yi MD CHEMISTRY Final Result [facility] [address] [place] [address] from Last 3 Months or Most Recently Relevant to Health Maintenance Insurance [employer] [facility] [phone] [facility] [place] [address] RAYMOND FABIAN Advance Directives * Full Code (Latest Code Status on File) Date Activated Date Inactivated Comments 07/05/2019 8:12 PM 07/07/2019 4:00 PM Question Answer Comments Code Status Discussion: Per Advance Care Plan * Full Code Date Activated Date Inactivated Comments 09/03/2005 11:26 AM 09/04/2005 4:41 PM * Full Code Date Activated Date Inactivated Comments 09/03/2005 6:10 AM 09/03/2005 11:26 AM Care Teams Services Rep Relationship Specialty Start Date End Date Pcp, No . PCP - General 08/06/13
[2024-11-28 08:28] VITALS: BP 121/85; PULSE 120; RESP 12; TEMP 36.3; O2SAT 98; BMI 41.8
--- NOTE | 2024-11-28 08:56 | CRLHL7_ITS ---
For Patients: As a result of the Cures Act, medical imaging exams and procedure reports are released immediately into your electronic medical record. You may view this report before your referring provider. If you have questions, please contact your health care provider. INDICATION: Fall on anterior right ribs TECHNIQUE: Single view chest with AP and oblique views of the right chest COMPARISON: Two-view chest September 19, 2024 FINDINGS: There is minimal basilar atelectasis. Otherwise, there is no dense consolidation, effusion or pneumothorax. The cardiomediastinal silhouette is within normal limits. Nondisplaced fractures of the lateral 8th and 9th ribs corresponding to the area of painful concern are appreciated. The bony thorax is otherwise intact. IMPRESSION: Minimal basilar atelectasis. Nondisplaced fractures of the lateral 8th and 9th ribs are appreciated corresponding to the area of painful concern. If pain and clinical symptoms persist, subtle additional non-displaced injuries are not entirely excluded. Dictated by Artie Francois MD @ 11/28/2024 9:24:15 AM (Electronically Signed)
--- NOTE | 2024-11-28 08:57 | ED_ITS ---
HPI - General Adult General Chief complaint: Rib Pain Stated complaint: fall Time Seen by Provider: 11/28/24 08:52 History of Present Illness HPI narrative: This 49-year-old female comes in with right anterior lower rib pain from a fall that occurred yesterday. She did not have a lot of discomfort initially but overnight she has developed lots of pain in this area. The pain is distinctly worse when taking a deep breath or with certain movements. She did not hit her head or have loss of consciousness and does not report any other injury. Related Data Home Medications ?Medication ?Instructions ?Recorded ?Confirmed lancets (Microlet Lancet) 02/01/22 11/18/24 calcium, magnesiu, zinc PO .HS 02/13/23 11/18/24 Previous Rx's ?Medication ?Instructions ?Recorded pen needle, diabetic 31 gauge x #100 ea 05/16/2307/11 (CareFine Pen Needle) omeprazole 20 mg tablet,delayed 20 mg PO QDAY #90 tabs 02/12/24 release blood-glucose,safety lamp keeper,cont #1 ea 07/13/24 (Dexcom G6 Aviation Consultant) amlodipine 10 mg tablet 10 mg PO DAILY #90 tabs 12/30 blood-glucose sensor (Dexcom G6 #9 ea 08/13/24 Sensor device) blood-glucose transmitter (Dexcom #1 ea 08/13/24 G6 Transmitter device) fluoxetine 40 mg capsule 40 mg PO QDAY #90 caps 08/13 levothyroxine 100 mcg tablet 100 mcg PO QDAY #90 tabs 08/13/24 metoprolol succinate 100 mg 100 mg PO DAILY #90 tabs 0 08/13/24 tablet,extended release 24 hr blood sugar diagnostic (Contour #50 ea 08/14/24 Next Test Strips) blood-glucose meter (Contour Next #1 ea 08/14/24 Gen Meter) rivaroxaban 20 mg tablet (Xarelto) 20 mg PO QDAY #90 t abs 08/27/24 tirzepatide 10 mg/0.5 mL 10 mg (0.5 mL) subcut QWEEK #2 mL 11/24/24 subcutaneous pen injector (Jordan) valsartan 160 mg tablet 160 mg PO BID #180 tabs 11/06 Allergies Allergy/AdvReac Type Severity Reaction Status Date / Time codeine Allergy itching Verified 11/28/24 08:28 paroxetine AdvReac Nausea Verified 11/28/24 08:28 Sulfa (Sulfonamide AdvReac swelling Verified 11/28/24 08:28 Antibiotics) of tongue Review of Systems Status of ROS: Reports: 10 or more systems reviewed and unremarkable except as noted in History and below Narrative: Constitutional: No fevers, no weight gain or loss. Eyes: No discharge. No vision changes. HENT: No congestion, no sore throat, no ear pain. Cardiovascular: No chest pain, no palpitations. Respiratory: No shortness of breath, no wheezes, no cough. Gastrointestinal: No abdominal pain, no vomiting, no diarrhea. Genitourinary: No dysuria, no hematuria. Musculoskeletal: Normal range of motion. Skin: No rashes, no pruritis. Neurological: No dizziness, weakness, sensory change, speech change. Endo/Heme/Allergies: No bruising or bleeding. No polydipsia. Pysch: no suicidality, no anxiety, no insomnia. All other systems reviewed and are negative. [facility] Medical History History of trigger finger ?Z87.39 - Personal history of other diseases of the musculoskeletal system and connective tissue (ICD-10) Plantar fasciitis, bilateral ?M72.2 - Plantar fascial fibromatosis (ICD-10) History of fracture of ankle (1987) ?Z87.81 - Personal history of (healed) traumatic fracture (ICD-10) Surgical History Hx of cervical discectomy (~09/2023) ?Z98.890 - Other specified postprocedural states (ICD-10) Status post laparoscopic assisted vaginal hysterectomy ?Z90.710 - Acquired absence of both cervix and uterus (ICD-10) Status post carpal tunnel release of both wrists (1982) ?Z98.890 - Other specified postprocedural states (ICD-10) History of tonsillectomy (1982) ?Z90.89 - Acquired absence of other organs (ICD-10) History of excision of dermoid cyst (2007) ?Z98.890 - Other specified postprocedural states (ICD-10) ?Z86.018 - Personal history of other benign neoplasm (ICD-10) History of cryosurgery ?Z98.890 - Other specified postprocedural states (ICD-10) History of cholecystectomy (2009) ?Z90.49 - Acquired absence of other specified parts of digestive tract (ICD- 10) History of bilateral breast reduction surgery (2005) ?Z98.890 - Other specified postprocedural states (ICD-10) History of arthroscopy of right knee (2013) ?Z98.890 - Other specified postprocedural states (ICD-10) Family History Brother Anxiety disorder Mother Anxiety disorder Breast cancer in female Colon cancer Diabetes Sister Anxiety disorder Maternal Grandfather Colon cancer Family/Other Rheumatoid arthritis Social History Narrative: Non-smoker- stopped 2010, 20 years about 5 cig day Significant other, 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 HEENT: Normocephalic, atraumatic. Neck: Normal range of motion. Nontender. Supple. Heart: Intact distal pulses. Lungs: No wheezes, rhonchi, or rales. Chest: Distinct pain is reproducible when palpating on the right lower lateral and medial ribs. Abdomen: Nontender. Back: Normal range of motion. Extremities: Normal range of motion. No injury. Skin: Intact. No rash. Warm. No erythema or pallor. Neurologic: No altered sensation. No weakness. Alert and oriented. Psychiatric: No suicidality. No anxiety or depression. No insomnia. Nursing notes and vitals signs are reviewed. Const: Vital Signs, click to edit/add: Vital Signs - 24 hr 11/28/24 08:28 Temperature 97.4 F L Pulse Rate [Pulse Oximeter] 120 H Respiratory Rate 12 Blood Pressure [Ri ght Upper Arm] 121/85 Pulse Oximetry 98 Oxygen Delivery Me thod Room Air Course Vital Signs Vital signs: Initial Vital Signs Temperature 97.4 F L 11/28/24 08:28 Temperature Source Temporal Artery Scan 11/28/24 08:28 Pulse Rate 120 H 11/28/24 08:28 Pulse Rhythm Irregular 11/28/24 08:28 Respiratory Rate 12 11/28/24 08:28 Blood Pressure 121/85 11/28/24 08:28 Blood Pressure Mean 97 11/28/24 08:28 Blood Pressure Position Sitting 11/28/24 08:28 Pulse Oximetry 98 11/28/24 08:28 Oxygen Delivery Method Room Air 11/28/24 08:28 Vital Signs Temperature 97.4 F L 11/28/24 08:28 Pulse Rate 120 H 11/28/24 08:28 Respiratory Rate 12 11/28/24 08:28 Blood Pressure 121/85 11/28/24 08:28 Pulse Oximetry 98 11/28/24 08:28 Oxygen Delivery Method Room Air 11/28/24 08:28 Temperature 97.4 F L 11/28/24 08:28 Pulse Rate 120 H 11/28/24 08:28 Respiratory Rate 12 11/28/24 08:28 Blood Pressure 121/85 11/28/24 08:28 Pulse Oximetry 98 11/28/24 08:28 Oxygen Delivery Method Room Air 11/28/24 08:28 Medical Decision Making MDM Narrative Medical decision making narrative: This patient comes in with injury to her right lower lateral anterior ribs from a fall that occurred yesterday. X-ray with rib detail does show nondisplaced fractures of the 8th and 9th ribs in these areas. Her lungs and cardiac silhouette appear normal. The patient is okay to be discharged home. I did provide prescriptions for Toradol and [place] and also provided a return to work note. Imaging Data Chest x-ray: Radiologist's impression: There is minimal basilar atelectasis. Otherwise, there is no dense consolidation, effusion or pneumothorax. The cardiomediastinal silhouette is within normal limits. Nondisplaced fractures of the lateral 8th and 9th ribs corresponding to the area of painful concern are appreciated. Discharge Plan Discharge Clinical Impression: Fracture, ribs Patient Disposition: Home, Self-Care Condition: Stable Additional Instructions: Take medications as needed and directed. Increase activity as tolerated. Follow up with MD return if worsening. Prescriptions: No Action calcium, magnesiu, zinc PO .HS (DME) pen needle, diabetic [CareFine Pen Needle] 31 gauge x 1/4 needle See Rx Instructions .MEDSUPPLY Qty: 100 3RF Rx Instructions: As directed- with victoza pen metoprolol succinate 100 mg tablet extended release 24 hr 100 mg PO DAILY Qty: 90 1RF levothyroxine 100 mcg tablet 100 mcg PO QDAY Qty: 90 1RF fluoxetine 40 mg capsule 40 mg PO QDAY Qty: 90 1RF amlodipine 10 mg tablet 10 mg PO DAILY Qty: 90 1RF (DME) lancets [Microlet Lancet] Misc See Rx Instructions .Route Rx Instructions: As directed omeprazole 20 mg tablet,delayed release (DR/EC) 20 mg PO QDAY Qty: 90 1RF (DME) Dexcom G6 Aviation Consultant Misc See Rx Instructions .MEDSUPPLY Qty: 1 0RF Rx Instructions: As directed for coninuous glucose monitoring (DME) Dexcom G6 Sensor Device See Rx Instructions .MEDSUPPLY Qty: 9 3RF Rx Instructions: As directed- continuous for diabetes (DME) Dexcom G6 Transmitter Device See Rx Instructions .MEDSUPPLY Qty: 1 0RF Rx Instructions: As directed continuous for diabetes (DME) blood-glucose meter [Contour Next Gen Meter] Misc See Rx Instructions .Route Qty: 1 0RF Rx Instructions: As directed (DME) Contour Next Test Strips Strip See Rx Instructions .Route Qty: 50 3RF Rx Instructions: As needed, when not using dexcom Xarelto 20 mg tablet 20 mg PO QDAY Qty: 90 1RF Rx Instructions: must administer with evening meal Mounjaro 10 mg/0.5 mL pen injector 10 mg subcut QWEEK Qty: 2 2RF Rx Instructions: once weekly valsartan 160 mg tablet 160 mg PO BID Qty: 180 1RF Follow Up/Referrals: Stephanie Hubbard PA-C [Primary Care Provider, Family Practice] Stand Alone Forms: [employer] Info Instructions
[2024-11-28 10:01] VITALS: BP 121/85; PULSE 117; RESP 12; TEMP 36.3
== END 2024-11-28 10:04 | disposition home or self-care (01) ==
PROVIDERS: Emergency Provider Emergency Medicine Emergency Medical Services; PCP Physician Assistant Medical
DX: S22.31XA Fracture of one rib, right side, initial encounter for closed fracture (principal); W19.XXXA Unspecified fall, initial encounter
CPT/HCPCS: 71101; 99283; 99284

== ENCOUNTER 2024-12-27 14:06 | Outpatient (CLI) | payer BC, SELFPAY ==
--- OUTSIDE RECORDS SUMMARY | 2024-12-29 00:26 | XMS_ITS | Clinical Summary ---
Author Organization [place] Address Count includes the [facility]0 [facility] [place] [address] Care Team Providers Care Ethanol Quality Leader Name Role Phone Stephanie Hubbard PA-C Primary [...] on file Legal Sex Female 4:41 AM GAS COMPRESSOR TURBINE OPERATOR Gender Identity Not on file Sexual Orientation Not on file Last Filed Vital Signs Vital Sign Reading Time Taken Comments Blood Pressure 127/63 08/16/2023 10:09 AM GAS COMPRESSOR TURBINE OPERATOR Pulse 72 08/16/2023 8:27 AM GAS COMPRESSOR TURBINE OPERATOR Temperature 36.3 C (97.3 F) 08/16/2023 7:23 AM GAS COMPRESSOR TURBINE OPERATOR Respiratory Rate 16 08/16/2023 10:2 6 AM GAS COMPRESSOR TURBINE OPERATOR Oxygen Saturation 99% 08/16/2023 8:27 AM GAS COMPRESSOR TURBINE OPERATOR Inhaled Oxygen Concentration - - Weight 112.2 kg (247 lb 4.8 oz) 08/15/2023 9:59 AM GAS COMPRESSOR TURBINE OPERATOR Height 162.6 cm (5' 4.02) 08/15/2023 9:59 AM CS T Body Mass Index 42.43 08/15/2023 9:59 AM GAS COMPRESSOR TURBINE OPERATOR Plan of Treatment Health Maintenance Due Date Last Done Comments ADVANCE CARE PLANNING 1974 ANNUAL REVIEW OF HM ORDERS 1974 CT COLONOGRAPHY 1974 FIT 1974 FLEX SIG 1974 MAMMO SCREENING 1974 TSH W/FREE T4 REFLEX 1974 sDNA (Cologuard) 1974 YEARLY PREVENTIVE VISIT 1977 COLONOSCOPY 02/05/1984 COLORECTAL CANCER SCREENING 02/05/1984 HIV SCREENING 1989 HEPATITIS C SCREENING 02/05/1992 HEPATITIS B VACCINE (1 of 3 - 19+ 3-dose series) 1993 PAP 1995 LIPID 2014 DTAP/TDAP/TD VACCINE (2 - Td or Tdap) 03/01/2018 03/01/2008, 02/10/1999 PNEUMOCOCCAL VACCINE 50+ YEARS (1 of 1 - PCV) 02/05/2024 ZOSTER VACCINE (1 of 2) 02/05/2024 COVID-19 VACCINE (3 - 2023- season) 2024 10/16/2020, 09/18/2020 PHQ-2 (once per calendar year) 2024 INFLUENZA VACCINE (Season Ended) 2025 05/05/2020, 05/01/2019, 06/09/2018, Additional history exists DIABETES SCREENING 08/16/2026 08/16/2023, 0 08/16/2023, 08/16/2023, Additional history exists HPV VACCINE Aged Out No longer eligi ble based on patient's age to complete this topic MENINGITIS VACCINE Aged Out No longer eligible based on patient's age to complete this topic Medical Devices Implanted Type Area Transfill Technician Device Identifier Shelf Expiration Date Model / Serial / Lot Graft Bone Putty [place] Dbm 1ml [id number] - [id number] Implanted:Qty : 1 on 08/15/2023 by Juancarlos Patterson MD at [facility] Bone/Tissue/ Biologic Left: Neck [employer] 11/27/2025 [id number] / [id number] / Modulus Cervical [id number] Degrees Implanted:Qty : 1 on 08/15/2023 by Juancarlos Patterson MD at [facility] Metallic Hardware/Anc hor Left: Neck NUVASIVE [id number] 06/07/2027 [id number] / / [id number] Procedures Procedure Name Priority Date/Time Associated Diagnosis Comments GLUCOSE BY METER Routine 08/16/2023 1:42 AM GAS COMPRESSOR TURBINE OPERATOR from Last 3 Months or Most Recently Relevant to Health Maintenance Results * (ABNORMAL) Glucose by meter (08/16/2023 1:42 AM GAS COMPRESSOR TURBINE OPERATOR) Pathologist [facility] GLUCOSE BY METER POCT 189(H) 70 - 99 mg/dL 08/16/2023 1:49 AM GAS COMPRESSOR TURBINE OPERATOR [facility] POC Blood, Capillary BLOOD SPECIMEN / Unknown 08/16/2023 1:42 AM GAS COMPRESSOR TURBINE OPERATOR 08/16/2023 1:49 AM GAS COMPRESSOR TURBINE OPERATOR us [facility]os Patterson [facility] PO[facility] nal Result [facility] Acute Care Lab [address] Lab (1st floor, no room number) [place] [address], [facility] [phone] from Last 3 Months or Most Recently Relevant to Health Maintenance Insurance [employer] [place] [employer] Advance Directives For more information, please contact: [phone] * Full Code (Latest Code Status on File) Date Activated Date Inactivated Comments 08/15/2023 3:10 PM 08/16/2023 1:39 PM All basic and advanced life-sustaining interventions are performed as appropriate Question Answer Comments Code status determined by: Discussion with wil nt/ legal decision maker Care Teams Ethanol Quality Leader Relationship Specialty Start Date End Date Stephanie Hubbard PA-C [facility] [address] [place] [address] PCP - General Physician Geology Instructor 08/15/23
--- OUTSIDE RECORDS SUMMARY | 2024-12-29 00:26 | XMS_ITS | Clinical Summary ---
Author Organization [facility] Address [address] [place] [id number] Care Team Providers Care Chef Broiler Or Fry Name Role Phone Pcp, No Primary Care [...] daily. 60 tablet 1 07/06/2019 3:00 PM PHYSICIAN INDUSTRIAL 9 Active Active Problems Problem Noted Date [...] on file Legal Sex Female 5:26 AM PHYSICIAN INDUSTRIAL Gender Identity Not on file Sexual Orientation Not on file Occupation Industry Job Start Date Job End Date [employer] Not on file Not on file Not [...] Comments Blood Pressure 143/94 07/07/2019 9:44 AM PHYSICIAN INDUSTRIAL Pulse 76 07/07/2019 9:44 AM PHYSICIAN INDUSTRIAL Temperature 36.8 C (98.2 F) 07/07/2019 9:44 AM PHYSICIAN INDUSTRIAL Respiratory Rate 16 07/07/2019 9:44 AM PHYSICIAN INDUSTRIAL Oxygen Saturation 98% 07/07/2019 9:44 AM PHYSICIAN INDUSTRIAL Inhaled Oxygen Concentration - - Weight 121.9 kg (268 lb 11.9 oz) 07/06/2019 8:19 AM PHYSICIAN INDUSTRIAL Height 162.6 cm (5' 4) 07/05/2019 7:46 PM PHYSICIAN INDUSTRIAL Body Mass Index 46.13 07/05/2019 7:46 PM PHYSICIAN INDUSTRIAL Plan of Treatment Health Maintenance Due Date [...] HPV HIGH RISK Timed 07/22/2013 1:15 PM PHYSICIAN INDUSTRIAL LIPID PANEL W REFLEX MEASURED LDL Routine 07/14/2009 9:31 AM PHYSICIAN INDUSTRIAL Lipid Screening from Last 3 Months or Most Recently Relevant to Health Maintenance Results * HPV THIN PREP (07/22/2013 1:15 PM PHYSICIAN INDUSTRIAL) SPECIMEN/SOURC E Thin prep [facility] HPV RESULTS High Risk HPV Negative. HPV types 16,18,31, 33,35,39, 45,51,52, 56,58,59, 66 and 68 DNA were undetecta ble or below the pre-set threshold . Methodolo gy: Shiloh Dustin 4800 HPV Test [facility] 07/22/2013 1:15 PM PHYSICIAN INDUSTRIAL 07/23/2013 1:39 PM PHYSICIAN INDUSTRIAL us Paige Delgado DO MICROBIOLOGY Justine l Result [facility] INTERNAL ZIP [id number] [address] [place] [address] * (ABNORMAL) LIPID PANEL W REFLEX MEASURED LDL (07/14/2009 9:31 AM PHYSICIAN INDUSTRIAL) CHOLESTEROL,TOTAL 153 110 - 199 mg/dL [facility] TRIGLYCERIDES 186(H) <150 mg/dL [facility] HDL CHOLESTEROL 36(L) >40 mg/dL [facility] CHOL/HDL RATIO 4.25 <4.51 [facility] LDL CHOLESTEROL 80 <131 mg/dL [facility] PATIENT STATUS Fasting [facility] Blood specimen (specimen) BLOOD SPECIMEN / Unknown 07/14/2009 9:31 AM PHYSICIAN INDUSTRIAL 07/14/2009 9:26 AM PHYSICIAN INDUSTRIAL us Stanislav Yi MD CHEMISTRY Final Result [facility] [address] [place] [address] from Last 3 Months or Most Recently Relevant to Health Maintenance Insurance BLUE ADVANTAGE [facility] [id number] [place] [id number] RAYMOND FABIAN Advance Directives * Full Code (Latest Code Status on File) Date Activated Date Inactivated Comments 07/05/2019 8:12 PM 07/07/2019 4:00 PM Question Answer Comments Code Status Discussion: Per Advance Care Plan * Full Code Date Activated Date Inactivated Comments 09/03/2005 11:26 AM 09/04/2005 4:41 PM * Full Code Date Activated Date Inactivated Comments 09/03/2005 6:10 AM 09/03/2005 11:26 AM Care Teams Chef Broiler Or Fry Relationship Specialty Start Date End Date Pcp, No . PCP - General 08/06/13
== END 2024-12-27 14:07 | disposition home or self-care (01) ==
LOC: AMB 12-28 12:46
PROVIDERS: PCP Physician Assistant Medical; Visit Provider Family Medicine
DX: R42 Dizziness and giddiness (principal)
CPT/HCPCS: A0998

== ENCOUNTER 2025-01-05 10:49 | Outpatient (CLI) | payer OTHER, SELFPAY | END 2025-01-05 10:50 | disposition home or self-care (01) | LOC: AMB 01-06 12:01 | PROVIDERS: PCP Physician Assistant Medical; Visit Provider Family Medicine | DX: R07.89 Other chest pain (principal); R42 Dizziness and giddiness | CPT/HCPCS: A0998 ==

== ENCOUNTER 2025-01-05 12:09 | Inpatient (IN) | payer OTHER, SELFPAY ==
[2025-01-05] VITALS (17 sets, daily range): BP systolic 110–145; BP diastolic 64–100; PULSE 88–106; RESP 16–18; TEMP 36.6–36.9; O2SAT 94–98; BMI 40.2; BMI 40.7
--- OUTSIDE RECORDS SUMMARY | 2025-01-05 12:12 | XMS_ITS | Clinical Summary ---
Author Organization [place] Address [facility] [place] [address] Care Team Providers Care Devops Solutions Architect Name Role Phone Stephanie Hubbard PA-C Primary [...] on file Legal Sex Female 4:41 AM RISK MANAGEMENT ANALYST Gender Identity Not on file Sexual Orientation Not on file Last Filed Vital Signs Vital Sign Reading Time Taken Comments Blood Pressure 127/63 08/16/2023 10:09 AM RISK MANAGEMENT ANALYST Pulse 72 08/16/2023 8:27 AM RISK MANAGEMENT ANALYST Temperature 36.3 C (97.3 F) 08/16/2023 7:23 AM RISK MANAGEMENT ANALYST Respiratory Rate 16 08/16/2023 10:2 6 AM RISK MANAGEMENT ANALYST Oxygen Saturation 99% 08/16/2023 8:27 AM RISK MANAGEMENT ANALYST Inhaled Oxygen Concentration - - Weight 112.2 kg (247 lb 4.8 oz) 08/15/2023 9:59 AM RISK MANAGEMENT ANALYST Height 162.6 cm (5' 4.02) 08/15/2023 9:59 AM CS T Body Mass Index 42.43 08/15/2023 9:59 AM RISK MANAGEMENT ANALYST Plan of Treatment Health Maintenance Due Date [...] this topic Medical Devices Implanted Type Area Certified Ski Patroller Device Identifier Shelf Expiration Date Model / Serial / Lot Graft Bone Putty [place] Dbm 1ml [id number] - [id number] Implanted:Qty : 1 on 08/15/2023 by Juancarlos Patterson MD at [facility] Bone/Tissue/ Biologic Left: Neck [employer] 11/27/2025 [id number] / [id number] / Modulus Cervical [id number] Implanted:Qty : 1 on 08/15/2023 by Juancarlos Patterson MD at [facility] Metallic Hardware/Anc hor Left: Neck NUVASIVE [id number] 06/07/2027 [id number] / / [id number] Procedures Procedure Name Priority Date/Time Associated Diagnosis Comments GLUCOSE BY METER Routine 08/16/2023 1:42 AM RISK MANAGEMENT ANALYST from Last 3 Months or Most Recently Relevant to Health Maintenance Results * (ABNORMAL) Glucose by meter (08/16/2023 1:42 AM RISK MANAGEMENT ANALYST) Pathologist [facility] GLUCOSE BY METER POCT 189(H) 70 - 99 mg/dL 08/16/2023 1:49 AM RISK MANAGEMENT ANALYST [facility] POC Blood, Capillary BLOOD SPECIMEN / Unknown 08/16/2023 1:42 AM RISK MANAGEMENT ANALYST 08/16/2023 1:49 AM RISK MANAGEMENT ANALYST us Juancarlos Patterson MD LAB - [facility] POCT nal Result [facility] [address] Lab (1st floor, no room number) [place] [address], [facility] [phone] from Last 3 Months or Most Recently Relevant to Health Maintenance Insurance [employer] Advance Directives For more information, please contact: [phone] * Full Code (Latest Code Status on File) Date Activated Date Inactivated Comments 08/15/2023 3:10 PM 08/16/2023 1:39 PM All basic and advanced life-sustaining interventions are performed as appropriate Question Answer Comments Code status determined by: Discussion with wil nt/ legal decision maker Care Teams Devops Solutions Architect Relationship Specialty Start Date End Date Stephanie Hubbard PA-C [facility] [address] [place] [address] PCP - General Physician Lumber Stacker Driver 08/15/23
--- OUTSIDE RECORDS SUMMARY | 2025-01-05 12:12 | XMS_ITS | Clinical Summary ---
Author Organization [facility] Address [address] [place] [address] Care Team Providers Care Garnett Feeder Name Role Phone Pcp, No Primary Care [...] daily. 60 tablet 1 07/06/2019 3:00 PM PRINTING AGENT 9 Active Active Problems Problem Noted Date [...] on file Legal Sex Female 5:26 AM PRINTING AGENT Gender Identity Not on file Sexual Orientation Not on file Occupation Industry Job Start Date Job End Date [employer] Not on file Not on file Not [...] Comments Blood Pressure 143/94 07/07/2019 9:44 AM PRINTING AGENT Pulse 76 07/07/2019 9:44 AM PRINTING AGENT Temperature 36.8 C (98.2 F) 07/07/2019 9:44 AM PRINTING AGENT Respiratory Rate 16 07/07/2019 9:44 AM PRINTING AGENT Oxygen Saturation 98% 07/07/2019 9:44 AM PRINTING AGENT Inhaled Oxygen Concentration - - Weight 121.9 kg (268 lb 11.9 oz) 07/06/2019 8:19 AM PRINTING AGENT Height 162.6 cm (5' 4) 07/05/2019 7:46 PM PRINTING AGENT Body Mass Index 46.13 07/05/2019 7:46 PM PRINTING AGENT Plan of Treatment Health Maintenance Due Date [...] Influenza Vaccine (Season Ended) 2025 05/01/20 19 (IA) Tdap Completed 03/01/2008 Procedures Procedure Name Priority Date/Time Associated Diagnosis Comments HPV HIGH RISK Timed 07/22/2013 1:15 PM PRINTING AGENT LIPID PANEL W REFLEX MEASURED LDL Routine 07/14/2009 9:31 AM PRINTING AGENT Lipid Screening from Last 3 Months or Most Recently Relevant to Health Maintenance Results * HPV THIN PREP (07/22/2013 1:15 PM PRINTING AGENT) SPECIMEN/SOURC E Thin prep [facility] HPV RESULTS High Risk HPV Negative. HPV types 16,18,31, 33,35,39, 45,51,52, 56,58,59, 66 and 68 DNA were undetecta ble or below the pre-set threshold . Methodolo gy: Shiloh Dustin 4800 HPV Test [facility] 07/22/2013 1:15 PM PRINTING AGENT 07/23/2013 1:39 PM PRINTING AGENT us Paige Delgado DO MICROBIOLOGY Justine l Result [facility] INTERNAL ZIP [id number] [place] [address] * (ABNORMAL) LIPID PANEL W REFLEX MEASURED LDL (07/14/2009 9:31 AM PRINTING AGENT) CHOLESTEROL,TOTAL 153 110 - 199 mg/dL [facility] TRIGLYCERIDES 186(H) <150 mg/dL [facility] HDL CHOLESTEROL 36(L) >40 mg/dL [facility] CHOL/HDL RATIO 4.25 <4.51 [facility] LDL CHOLESTEROL 80 <131 mg/dL [facility] PATIENT STATUS Fasting [facility] Blood specimen (specimen) BLOOD SPECIMEN / Unknown 07/14/2009 9:31 AM PRINTING AGENT 07/14/2009 9:26 AM PRINTING AGENT us Stanislav Yi MD CHEMISTRY Final Result [facility] [address] [place] [address] from Last 3 Months or Most Recently Relevant to Health Maintenance Insurance [phone] [place] [id number] BLUE [facility] [phone] [place] [id number] RAYMOND FABIAN Advance Directives * Full Code (Latest Code Status on File) Date Activated Date Inactivated Comments 07/05/2019 8:12 PM 07/07/2019 4:00 PM Question Answer Comments Code Status Discussion: Per Advance Care Plan * Full Code Date Activated Date Inactivated Comments 09/03/2005 11:26 AM 09/04/2005 4:41 PM * Full Code Date Activated Date Inactivated Comments 09/03/2005 6:10 AM 09/03/2005 11:26 AM Care Teams Garnett Feeder Relationship Specialty Start Date End Date Pcp, No . PCP - General 08/06/13
--- NOTE | 2025-01-05 12:23 | ED.GENADULT ---
HPI - General Adult General Chief complaint: Alcohol/Intoxication Stated complaint: lightheaded,shaky,nausea Time Seen by Provider: 01/05/25 12:23 History of Present Illness HPI narrative: Pt reports she is feeling lightheaded, nauseous, chest pain, and shaky. Is trying to stop drinking alcohol, last drink was 9pm last night. Drinks up to 12 drinks daily. Also states lightheaded episodes are happening more frequently before today. Called EMS today but decided to self -transport to ER. 49-year-old woman presenting to the emergency department with concern of being nauseated and shaky though she does not feel she needs anything for the nausea. She says that she would like to stop drinking. Drinks up to a 12 pack of beer daily. Was seen last in this facility about 6 weeks ago following a fall with some rib fractures. See says she is tired of feeling ?shitty? and would like to stop drinking. She has discussed this with a friend and she does have her father and other family members for support. Last drink was yesterday evening. Is not feeling short of breath. Is feeling a little lightheaded. Withdrawal symptoms seem to be limited to shaking. Denies a history of hallucinations or seizures. Does have a history of hyponatremia and elevated transaminases. History of atrial fibrillation and anticoagulated with Xarelto. Denies history of detox or treatment. Related Data Home Medications ?Medication ?Instructions ?Recorded ?Confirmed calcium carbonate (Oyster Shell 500 mg PO HS 01/05/25 01/05/25 Calcium) fluoxetine 40 mg capsule 40 mg PO DAILY 01/05/25 01/05/25 levothyroxine 100 mcg tablet 100 mcg PO DAILY 01/05/25 01/05/25 magnesium citrate 100 mg tablet 100 mg PO QHS 01/05/25 01/05/25 omeprazole 20 mg tablet,delayed 20 mg PO DAILY 01/05/25 01/05/25 release potassium gluconate 550 mg (90 mg) 550 mg PO DAILY 01/05/25 01/05/25 tablet rivaroxaban 20 mg tablet (Xarelto) 20 mg PO DAILY 01/05/25 01/05/25 tirzepatide 10 mg/0.5 mL 10 mg subcut Q7D 01/05/25 01/05/25 subcutaneous pen injector (Jordan) vitamin B complex 1 tab PO DAILY 01/05/25 01/05/25 Previous Rx's ?Medication ?Instructions ?Recorded amlodipine 10 mg tablet 10 mg PO DAILY #90 tabs 08/13/24 metoprolol succinate 100 mg 100 mg PO DAILY #90 tabs 08/13/24 tablet,extended release 24 hr valsartan 160 mg tablet 160 mg PO BID #180 tabs 11/24/24 Allergies Allergy/AdvReac Type Severity Reaction Status Date / Time codeine Allergy itching Verified 11/28/24 08:28 paroxetine AdvReac Nausea Verified 11/28/24 08:28 Sulfa (Sulfonamide AdvReac swelling Verified 11/28/24 08:28 Antibiotics) of tongue Review of Systems Status of ROS: Reports: 6 or more systems reviewed and unremarkable except as noted in History and below [facility] Medical History History of trigger finger ?Z87.39 - Personal history of other diseases of the musculoskeletal system and connective tissue (ICD-10) Plantar fasciitis, bilateral ?M72.2 - Plantar fascial fibromatosis (ICD-10) History of fracture of ankle (1987) ?Z87.81 - Personal history of (healed) traumatic fracture (ICD-10) Surgical History Hx of cervical discectomy (~09/2023) ?Z98.890 - Other specified postprocedural states (ICD-10) Status post laparoscopic assisted vaginal hysterectomy ?Z90.710 - Acquired absence of both cervix and uterus (ICD-10) Status post carpal tunnel release of both wrists (1982) ?Z98.890 - Other specified postprocedural states (ICD-10) History of tonsillectomy (1982) ?Z90.89 - Acquired absence of other organs (ICD-10) History of excision of dermoid cyst (2007) ?Z98.890 - Other specified postprocedural states (ICD-10) ?Z86.018 - Personal history of other benign neoplasm (ICD-10) History of cryosurgery ?Z98.890 - Other specified postprocedural states (ICD-10) History of cholecystectomy (2009) ?Z90.49 - Acquired absence of other specified parts of digestive tract (ICD-10) History of bilateral breast reduction surgery (2006) ?Z98.890 - Other specified postprocedural states (ICD-10) History of arthroscopy of right knee (2013) ?Z98.890 - Other specified postprocedural states (ICD-10) Family History Brother Anxiety disorder Mother Anxiety disorder Breast cancer in female Colon cancer Diabetes Sister Anxiety disorder Maternal Grandfather Colon cancer Family/Other Rheumatoid arthritis Social History (Updated 01/05/25 @ 17:26 by Heidi Patel MD) Narrative: Non-smoker- stopped 2010, 20 years about 5 cig day Lives alone, works as a cook at [employer] Everyday drinker, 12 beers/day Daughter is 18 and recently had a baby What is your current living situation?: I presently have a place to live Problems where you live: mold Problems where you live details: mold in bathroom In the past 12 months, utilities in danger of being shut off: no In past 12 months, lack of transportation kept you from medical appts, meetings, work, or getting things needed for daily living: no In the past 12 mos, have been you worried that your food would run out before you had money to buy more?: never true In the past 12 mos, the food you bought just didn't last and you didn't have money to buy more?: never true Highest level of school completed/degree received: high school graduate Smoking Status: Former smoker Do you use any of these nicotine containing products: None Second hand tobacco smoke exposure: No How often do you have a drink containing alcohol: 4 or more times a week Alcohol type: beer How many standard drinks containing alcohol do you have on a typical day: 10 or more How often do you have six or more drinks on one occasion: Daily or almost daily AUDIT-C Alcohol total score: 12 Non-prescribed substance use: denies use Caffeine: No (occasional cup of coffee) How often does anyone, including family, friends and others, physically hurt you: never How often does anyone, including family, friends and others, insult or talk down to you: never How often does anyone, including family, friends and others, threaten you with harm: never How often does anyone, including family, friends and others, scream or curse at you: never service: No Health Related Social Needs: Inadequate housing (Z59.1) Exam Narrative: Exam Narrative: Very pleasant. Tremulous. Skin is warm and dry. Mouth is a little sticky. Heart in elevated but regular rate and rhythm. Lungs are clear. Abdomen is overweight soft nontender. Extremities are well perfused without edema. Cranial nerves 2-12 intact. Pupils are 2-3 mm equal and briskly reactive. Const: Vital Signs, click to edit/add: Vital Signs - 24 hr 01/05/25 12:14 01/05/25 13:41 01/05/25 15:20 Temperature 98.0 F 98.0 F 98.0 F Pulse Rate [Left P ulse Oximeter] Pulse Rate [Pulse Oximeter] 95 Respiratory Rate 16 16 16 Blood Pressure [Le ft Arm] Blood Pressure [Ri ght Upper Arm] 145/91 H Pulse Oximetry 98 98 98 Oxygen Delivery Me thod Room Air Room Air Room Air 01/05/25 16:01 01/05/25 16:06 Temperature 98.5 F Pulse Rate [Left P ulse Oximeter] 99 Pulse Rate [Pulse Oximeter] Respiratory Rate 18 16 Blood Pressure [Le ft Arm] 142/100 H Blood Pressure [Ri ght Upper Arm] Pulse Oximetry 97 98 Oxygen Delivery Me thod Room Air Room Air Documenting provider has reviewed patient's vital signs: yes Course Vital Signs Vital signs: Initial Vital Signs Temperature 98.0 F 01/05/25 12:14 Temperature Source Temporal Artery Scan 01/05/25 12:14 Pulse Rate 95 01/05/25 12:14 Respiratory Rate 16 01/05/25 12:14 Blood Pressure 145/91 H 01/05/25 12:14 Blood Pressure Mean 109 H 01/05/25 12:14 Blood Pressure Position Sitting 01/05/25 12:14 Pulse Oximetry 98 01/05/25 12:14 Oxygen Delivery Method Room Air 01/05/25 12:14 Vital Signs Temperature 98.0 F 01/05/25 12:14 Pulse Rate 95 01/05/25 12:14 Respiratory Rate 16 01/05/25 12:14 Blood Pressure 145/91 H 01/05/25 12:14 Pulse Oximetry 98 01/05/25 12:14 Oxygen Delivery Method Room Air 01/05/25 12:14 Temperature 97.6 F 01/07/25 03:53 Pulse Rate 84 01/07/25 07:00 Respiratory Rate 14 01/07/25 03:53 Blood Pressure 110/81 01/07/25 03:53 Pulse Oximetry 98 01/07/25 03:53 Oxygen Delivery Method Room Air 01/07/25 03:53 Medications Administered Medications: Generic Name Dose Route Start Last Admin Trade Name Stewartq PRN Reason Stop Dose Admin Acetaminophen 650 - 975 mg 01/05/25 16:55 01/06/25 12:05 Acetaminophen 325 Mg Tablet PO 975 mg Q6H PRN Administration Amlodipine Besylate 10 mg 01/06/25 09:00 01/06/25 09:46 Amlodipine 10 Mg Tablet PO 10 mg DAILY BLANKA Administration Fluoxetine HCl 40 mg 01/06/25 09:00 01/06/25 09:46 Fluoxetine Hcl 20 Mg Capsule PO 40 mg DAILY BLANKA Administration Folic Acid 1 mg 01/06/25 09:00 01/06/25 09:46 Folic Acid 1 Mg Tablet PO 1 mg DAILY BLANKA Administration Ketorolac Tromethamine 15 mg 01/06/25 08:11 01/07/25 06:22 Ketorolac 15 Mg/Ml Inj IVP 15 mg Q8H PRN Administration pleuritic pain Levothyroxine Sodium 100 mcg 01/06/25 07:00 01/07/25 05:55 Levothyroxine 100 Mcg Tablet PO 100 mcg DAILY@0700 BLANKA Administration Metoprolol Succinate 100 mg 01/06/25 09:00 01/06/25 09:46 Metoprolol Succinate (Xl) 100 Mg Tab PO 100 mg DAILY BLANKA Administration Omeprazole 40 mg 01/06/25 07:00 01/07/25 05:55 Omeprazole [address] PO 40 mg DAILY@0700 BLANKA Administration Oxycodone HCl 5 mg 01/06/25 06:36 01/07/25 05:51 Oxycodone 5 Mg Tablet PO 5 mg Q4H PRN Administration Sodium Chloride 5 ml 01/05/25 16:55 01/07/25 06:23 Sodium Chloride 0.9 % (Flush) 10 Ml Syringe IVF 5 ml .FLUSH PRN Administration Sodium Chloride 5 ml 01/05/25 21:00 01/06/25 21:17 Sodium Chloride 0.9 % (Flush) 10 Ml Syringe IVF 5 ml BID BLANKA Administration Sodium Chloride 1 gm 01/06/25 12:05 01/06/25 17:32 Sodium Chloride 1 Gm Tablet PO 1 gm TIDWM BLANKA Administration Thiamine HCl 100 mg 01/05/25 17:00 01/06/25 17:32 Thiamine 100 Mg Tablet PO 01/07/25 17:01 100 mg Q24H BLANKA Administration Discontinued Medications Generic Name Dose Route Start Last Admin Trade Name Stewartq PRN Reason Stop Dose Admin Acetaminophen 1,000 mg 01/05/25 14:00 01/05/25 14:04 Acetaminophen 500 Mg Tablet PO 01/05/25 14:01 1,000 mg ONCE ONE Administration Desmopressin Acetate 2 mcg 01/05/25 18:45 01/05/25 18:48 Desmopressin Acetate 4 Mcg/Ml Inj IVP 2 mcg Q8H BLANKA Administration Desmopressin Acetate 2 mcg 01/06/25 03:00 01/06/25 19:23 Desmopressin Acetate 4 Mcg/Ml Inj IVP Not Given Q8H BLANKA Folic Acid 1 mg 01/05/25 12:35 01/05/25 12:48 Folic Acid 1 Mg Tablet PO 01/05/25 12:36 1 mg ONCE ONE Administration Sodium Chloride 1,000 mls @ 1,000 mls/hr 01/05/25 12:35 01/05/25 14:24 0.9 % Sodium Chloride 1000 Ml IV 01/05/25 13:34 Infused .Q1H ONE Infusion Sodium Chloride 1,000 mls @ 50 mls/hr 01/05/25 17:00 01/05/25 19:11 0.9 % Sodium Chloride 1000 Ml IV Infused .Q20H BLANKA Infusion Ketorolac Tromethamine 15 mg 01/06/25 02:23 01/06/25 02:51 Ketorolac 15 Mg/Ml Inj IVP 01/06/25 02:24 15 mg ONCE ONE Administration Lorazepam 1 - 4 mg 01/05/25 16:55 01/05/25 19:56 Lorazepam 2 Mg/Ml Inj IVP 2 mg Q1H PRN Administration Alcohol Withdrawal Protocol Non-Formulary Medication 2 mcg 01/05/25 18:00 01/05/25 18:54 Ddavp IV Not Given Q8H BLANKA Thiamine HCl 100 mg 01/05/25 12:35 01/05/25 12:48 Thiamine 100 Mg Tablet PO 01/05/25 12:36 100 mg ONCE ONE Administration Medical Decision Making MDM Narrative Medical decision making narrative: Does not feel like she needs anything for nausea. Will assess for safety for outpatient/assisted detox versus medical. Given normal saline folic acid and thiamine. History of hyponatremia and will assess for degree of this as well as for cardiac rhythm status. Initial EKG independently reviewed by me looks to show normal sinus. Rate 94. I do not see evidence of acute injury. We were able to locate a potential bed at [facility]. Labs return with a sodium of 120. At this point would be better for medical detox and anticipate keeping her at this facility. Discuss this case with hospitalist and is thankfully accepting for admission. Medical Records Medical records reviewed: Yes I reviewed the patient's medical records Lab Data Labs: Lab Results 01/05/25 01/05/25 Range/Units 12:43 15:46 WBC 7.11 (4.50-11.00) K/uL RBC 4.33 (4.00-5.20) m/uL Hgb 13.8 (12.0-16.0) gm/dL Hct 39.1 (33.0-51.0) % MCV 90 (80-100) fL MCH 32 (26-34) pg MCHC 35 (32-36) gm/dL RDW Coeff of Baljeet 12.3 (11.5-15.5) % Plt Count 286 (140-440) K/uL Neut % (Auto) 81.5 H (42.0-72.0) % Lymph % (Auto) 10.3 L (20-44) % [place]ac % (Auto) 7.5 (0.0-11.0) % Eos % (Auto) 0.3 (0.0-7.0) % Baso % (Auto) 0.1 (0.0-3.0) % Neut # (Auto) 5.80 (1.7-7.0) K/uL Lymph # (Auto) 0.70 L (0.90-2.90) K/uL [place] # (Auto) 0.50 (0.00-0.90) K/UL Eos # (Auto) 0.02 (0.00-0.50) K/uL Baso # (Auto) 0.01 (0.00-0.30) K/uL Abs Immat Gran (auto) 0.02 (0.00-0.30) K/uL Imm/Tot Granulo (auto) 0.3 % Sodium 120 L* (135-149) mmol/L Potassium 5.4 H (3.6-5.1) mmol/L Chloride 86 L (96-114) mmol/L Carbon Dioxide 25 (20-32) mmol/L Anion Gap 9 (7-15) mEq/L BUN 10 (7-30) mg/dL Creatinine 0.5 (0.5-1.5) mg/dL Estimated Creat Clear 111.35 Estimated GFR 114 ml/min Glucose 179 H (60-115) mg/dL Calcium 9.3 (8.4-10.6) mg/dL Ethyl Alcohol < 0.01 (0.01-0.03) % POC Glucose 127 H (60-115) mg/dl Discharge Plan Discharge Clinical Impression: Hyponatremia, Alcohol dependence Patient Disposition: Admitted As Observation Condition: Stable
[2025-01-05] MEDS: FOLIC ACID 1 MG TABLET PO (12:48)
[2025-01-05] MEDS: THIAMINE 100 MG TABLET PO ×2 (12:48→17:33)
[2025-01-05 12:55] LABS: Hematocrit 39.1 % (33.0-51.0); Hemoglobin* 13.8 gm/dL (12.0-16.0); Immature Granulocytes Abs Auto 0.02 K/uL (0.00-0.30); Immature Granulocytes Pct Auto 0.3 %; Mean Corpuscular HGB Conc 35 gm/dL (32-36); Mean Corpuscular Hemoglobin 32 pg (26-34); Mean Corpuscular Volume 90 fL (80-100); RDW Coefficient of Variation % 12.3 % (11.5-15.5); Red Blood Count 4.33 m/uL (4.00-5.20); White Blood Count* 7.11 K/uL (4.50-11.00)
[2025-01-05 12:59] LABS: Lymphocytes Absolute Auto 0.70 K/uL (0.90-2.90); Slide Review Reflex No
[2025-01-05 13:27] LABS: Chloride* 86 mmol/L (96-114)
[2025-01-05 13:30] LABS: Anion Gap 9 mEq/L (7-15); Blood Urea Nitrogen* 10 mg/dL (7-30); Calcium* 9.3 mg/dL (8.4-10.6); Carbon Dioxide* 25 mmol/L (20-32); Creatinine* 0.5 mg/dL (0.5-1.5); Est. Creatinine Clearance* 111.35; Estimated Glomerular Filt Rate 114 ml/min; Glucose* 179 mg/dL (60-115)
[2025-01-05 13:35] LABS: Ethanol* < 0.01 % (0.01-0.03); Sodium* 120 mmol/L (135-149)
[2025-01-05 13:36] LABS: Potassium* 5.4 mmol/L (3.6-5.1)
[2025-01-05] MEDS: ACETAMINOPHEN 500 MG TABLET 1000 MG PO (14:04)
[2025-01-05 15:47] LABS: Glucose, Point-of-Care* 127 mg/dl (60-115)
--- NOTE | 2025-01-05 17:05 | PM.IMHP1 ---
Assessment and Plan Assessment and plan (1) Alcohol withdrawal: Problem comment: Endorses drinking 12 beers/day. No reported history of withdrawal. Presents with elevated CIWA scores less than 24 hours since last EtOH (21:00 01/04). Family history of alcoholism. Interested in treatment. She complains of low chest/upper abd pain, but no signs of GIB at this time. Certainly could have ulcer or pancreatitis. Plan: Monitor on telemetry Seizure precautions Check LFTs, INR, lipase. Trend Hgb Replete thiamine, folate Continue PPI, hold xarelto for now given risk for bleeding and currently in NSR CIWA protocol with lorazepam building services technician appreciated, will need a Rule 25 assessment Status: Acute (2) Alcohol dependence: Problem comment: Appreciate psych social worker assistance with chemical dependency resources Status: Acute (3) Hyponatremia: Problem comment: Euvolemic hyponatremia, likely potomania. Appears mildly dry on exam. Also consider thyroid dysfunction. Initial sodium is 120. Goal is less than or equal to 128 by 13:30 on 01/06. Plan: Labs- check TSH, serum osm, urine osm and urine sodium. Monitor Sodium Q4H Fluid restrict to 1500 (consider 1000 if sluggish to improve) OK for diet for now. Will give very low dose mIVF with NS at 50 ml/hr OK to continue SSRI as etiology less likely 2/2 SSRI Status: Acute (4) Obstructive sleep apnea syndrome: Problem comment: Monitor with continuous pulse oximetry Status: Acute (5) Nonspecific chest pain: Problem comment: Certainly does not sound cardiac in nature. Could have likely gastritis, PUD, pancreatitis or MSK issue. -Monitor on tele -Check lipase and trend hgb -Consider outpatient GI referral Status: Acute (6) Hypothyroidism: Problem comment: Check TSH, continue levothyroxine Status: Acute (7) Hypertension: Problem comment: Currently mildly hypertensive, likely secondary to EtOH withdrawal. -Continue home amlodipine and metoprolol -Hold Valsartan given hyponatremia Status: Acute (8) Gastroesophageal reflux disease: Problem comment: Continue oral omeprazole for now, if any evidence of bleeding, will need to step up to IV pantoprazole Status: Acute (9) Depression: Problem comment: Continue SSRI Status: Acute (10) Anxiety disorder: Problem comment: Has history of intolerance to Paxil, but I have concern that fluoxetine may be too activating. Very difficult to determine given acute withdrawal. Could consider transition to less activating SSRI as outpatient if anxiety continues to be bothersome Status: Acute (11) Diabetes mellitus, type II: Problem comment: Patient reports well controlled A1C with recent 30 lbs weight loss on Tirzepatide. Will hold off on accuchecks for now, but will order if glucose on am BNP is very elevated. Status: Acute Total Time Spent Total Time Spent: Greater than 75 minutes spent on chart review, discussion with ER provider, patient evaluation, counseling and documentation Hospitalist- H&P: HPI History of Present Illness Time Seen by Provider: 17:05 Date Seen: 01/05/25 Chief complaint: lightheaded,shaky,nausea Narrative: Lorie Conteh is a delightful 49 year old female with DMII, paroxysmal atrial fibrillation on xarelto, hypothyroidism and alcohol use disorder who presents to the ER with concern for alcohol withdrawal. She states that she typically drinks about 12 beers per day and drinks daily for a long time. She is starting to notice general malaise and is concerned about her health, so has decided to seek treatment for alcoholism. She has struggled to identify resources. Her last drink was about 20 hours ago and she presented to the ER with nausea, anorexia, shakiness and anxiety. She denies a history of alcohol withdrawal, but can not tell me the last time she went more than a day without drinking. In terms of her other medical conditions, she has anxiety and takes fluoxetine. She has a history of paroxysmal atrial fibrillation and has been on Xarelto, but does not think she has been in a fib for a couple of years. Although she bruises easily, she has not noticed any blood in her stool or black/tarry stools and denies any emesis. She reports that her diabetes has been well controlled and believes her last A1C was less than 8.0. She only uses tirzepatide, does not tolerate metformin, and has lost about 30 lbs recently. In the emergency department, patient was noted to be in mild alcohol withdrawal and initial plan was to have her admitted to a detox facility. Unfortunately, her Sodium subsequently returned critically low at 120. She endorses drinking a lot of water, but I suspect potomania is likely the underlying etiology. She does have a history of lower sodium readings, but this is the lowest in her chart. She is largely asymptomatic. She also had a mildly elevated potassium and appears to take a potassium supplement. Her glucose is elevated, but not extremely so. She complains of intermittent left lower chest pain associated with her ribs, which is worse when she is anxious, but no typical anginal symptoms. She is mentating well and motivated to get better. Review of Systems Status of ROS: Reports: 10 or more systems reviewed and unremarkable except as noted in History and below Medical Decision Making Medical Decision Making Code Status: FULL CODE Has patient completed a Health Care Directive: No During This Stay, Who Would You Like To Make Decisions For You In The Event You Are Unable To Make Them For Yourself?: Chiquita Conteh [phone] [facility] Medical History History of trigger finger ?Z87.39 - Personal history of other diseases of the musculoskeletal system and connective tissue (ICD-10) Plantar fasciitis, bilateral ?M72.2 - Plantar fascial fibromatosis (ICD-10) History of fracture of ankle (1987) ?Z87.81 - Personal history of (healed) traumatic fracture (ICD-10) Surgical History Hx of cervical discectomy (~09/2023) ?Z98.890 - Other specified postprocedural states (ICD-10) Status post laparoscopic assisted vaginal hysterectomy ?Z90.710 - Acquired absence of both cervix and uterus (ICD-10) Status post carpal tunnel release of both wrists (1982) ?Z98.890 - Other specified postprocedural states (ICD-10) History of tonsillectomy (1982) ?Z90.89 - Acquired absence of other organs (ICD-10) History of excision of dermoid cyst (2007) ?Z98.890 - Other specified postprocedural states (ICD-10) ?Z86.018 - Personal history of other benign neoplasm (ICD-10) History of cryosurgery ?Z98.890 - Other specified postprocedural states (ICD-10) History of cholecystectomy (2009) ?Z90.49 - Acquired absence of other specified parts of digestive tract (ICD-10) History of bilateral breast reduction surgery (2005) ?Z98.890 - Other specified postprocedural states (ICD-10) History of arthroscopy of right knee (2014) ?Z98.890 - Other specified postprocedural states (ICD-10) Family History Brother Anxiety disorder Mother Anxiety disorder Breast cancer in female Colon cancer Diabetes Sister Anxiety disorder Maternal Grandfather Colon cancer Family/Other Rheumatoid arthritis Social History (Updated 01/05/25 @ 17:26 by Heidi Patel MD) Narrative: Non-smoker- stopped 2010, 20 years about 5 cig day Lives alone, works as a cook at [employer] Everyday drinker, 12 beers/day Daughter is 18 and recently had a baby What is your current living situation?: I presently have a place to live Problems where you live: mold Problems where you live details: mold in bathroom In the past 12 months, utilities in danger of being shut off: no In past 12 months, lack of transportation kept you from medical appts, meetings, work, or getting things needed for daily living: no In the past 12 mos, have been you worried that your food would run out before you had money to buy more?: never true In the past 12 mos, the food you bought just didn't last and you didn't have money to buy more?: never true Highest level of school completed/degree received: high school graduate Smoking Status: Former smoker Do you use any of these nicotine containing products: None Second hand tobacco smoke exposure: No How often do you have a drink containing alcohol: 4 or more times a week Alcohol type: beer How many standard drinks containing alcohol do you have on a typical day: 10 or more How often do you have six or more drinks on one occasion: Daily or almost daily AUDIT-C Alcohol total score: 12 Non-prescribed substance use: denies use Caffeine: No (occasional cup of coffee) How often does anyone, including family, friends and others, physically hurt you: never How often does anyone, including family, friends and others, insult or talk down to you: never How often does anyone, including family, friends and others, threaten you with harm: never How often does anyone, including family, friends and others, scream or curse at you: never service: No Health Related Social Needs: Inadequate housing (Z59.1) Meds Home Medications and Allergies Home Medications ?Medication ?Instructions ?Recorded ?Confirmed ?Type amlodipine 10 mg tablet 10 mg PO DAILY #90 tabs 08/13/24 01/05/25 Rx metoprolol succinate 100 mg 100 mg PO DAILY #90 tabs 08/13/24 01/05/25 Rx tablet,extended release 24 hr valsartan 160 mg tablet 160 mg PO BID #180 tabs 11/24/24 01/05/25 Rx calcium carbonate (Oyster Shell 500 mg PO HS 01/05/25 01/05/25 History Calcium) fluoxetine 40 mg capsule 40 mg PO DAILY 01/05/25 01/05/25 History levothyroxine 100 mcg tablet 100 mcg PO DAILY 01/05/25 01/05/25 History magnesium citrate 100 mg tablet 100 mg PO QHS 01/05/25 01/05/25 History omeprazole 20 mg tablet,delayed 20 mg PO DAILY 01/05/25 01/05/25 History release potassium gluconate 550 mg (90 mg) 550 mg PO DAILY 01/05/25 01/05/25 History tablet rivaroxaban 20 mg tablet (Xarelto) 20 mg PO DAILY 01/05/25 01/05/25 History tirzepatide 10 mg/0.5 mL 10 mg subcut Q7D 01/05/25 01/05/25 History subcutaneous pen injector (Mounjaro) vitamin B complex 1 tab PO DAILY 01/05/25 01/05/25 History Allergies Allergy/AdvReac Type Severity Reaction Status Date / Time codeine Allergy itching Verified 11/28/24 08:28 paroxetine AdvReac Nausea Verified 11/28/24 08:28 Sulfa (Sulfonamide AdvReac swelling Verified 11/28/24 08:28 Antibiotics) of tongue Exam Narrative: Exam Narrative: General: Well appearing, tearful and anxious but no acute distress HEENT: MM tacky, NCAT Resp: CTAB CV: RRR, no m/g/r, no DEAN Abdomen: Obese, nontender Neuro: Alert and oriented, pleasant, no lateralizing deficits Const: Vital Signs, click to edit/add: Vital Signs - 24 hr 01/05/25 12:14 01/05/25 13:41 01/05/25 15:20 Temperature 98.0 F 98.0 F 98.0 F Pulse Rate [Left P ulse Oximeter] Pulse Rate [Pulse Oximeter] 95 Respiratory Rate 16 16 16 Blood Pressure [Le ft Arm] Blood Pressure [Ri ght Upper Arm] 145/91 H Pulse Oximetry 98 98 98 Oxygen Delivery Me thod Room Air Room Air Room Air 01/05/25 16:01 01/05/25 16:06 01/05/25 16:59 Temperature 98.5 F 98.5 F Pulse Rate [Left P ulse Oximeter] 99 99 Pulse Rate [Pulse Oximeter] Respiratory Rate 18 16 16 Blood Pressure [Le ft Arm] 142/100 H 142/100 H Blood Pressure [Ri ght Upper Arm] Pulse Oximetry 97 98 98 Oxygen Delivery Wy thod Room Air Room Air Room Air Hospitalist - H&P: Result Labs Labs: Short CBC 01/05/25 Range/Units 12:43 WBC 7.11 (4.50-11.00) K/uL Hgb 13.8 (12.0-16.0) gm/dL Hct 39.1 (33.0-51.0) % Plt Count 286 (140-440) K/uL BMP 01/05/25 12:43 Sodium 120 L* Potassium 5.4 H Chloride 86 L Carbon Dioxide 25 BUN 10 Creatinine 0.5 Glucose 179 H Calcium 9.3
[2025-01-05] MEDS: SODIUM CHLORIDE 0.9 % (FLUSH) 10 ML SYRINGE 5 ML IVF ×4 (17:14→19:58)
[2025-01-05 17:41] LABS: Albumin* 4.5 g/dL (3.3-5.0); Chloride* 90 mmol/L (96-114); Potassium* 4.6 mmol/L (3.6-5.1)
[2025-01-05 17:42] LABS: INR 1.48 (0.91-1.10); Prothrombin Time 18.9 Seconds
[2025-01-05 17:43] LABS: Blood Urea Nitrogen* 9 mg/dL (7-30); Creatinine* 0.6 mg/dL (0.5-1.5); Est. Creatinine Clearance* 92.79; Estimated Glomerular Filt Rate 109 ml/min
[2025-01-05 17:44] LABS: Alanine Aminotransferase* 36 U/L (4-35); Alkaline Phosphatase* 78 U/L (40-150); Anion Gap 8 mEq/L (7-15); Aspartate Amino Transferase* 56 U/L (12-35); Bilirubin Total* 1.0 mg/dL (0.1-1.5); Calcium* 9.7 mg/dL (8.4-10.6); Carbon Dioxide* 26 mmol/L (20-32); Glucose* 137 mg/dL (60-115); Total Protein* 7.7 g/dL (6.0-8.3)
[2025-01-05 17:45] LABS: Sodium* 124 mmol/L (135-149)
[2025-01-05 19:00] LABS: Sodium Urine Random* 64
--- NOTE | 2025-01-05 19:43 | PC.NURSE ---
End of shift-- Pt admitted to CCU this afternoon via wheelchair from ED. Pleasant, alert and oriented. VSS and pt is afebrile. SPO2 maintained >94% on RA. She c/o a mild/moderate headache this evening, but otherwise denied pain. CIWA 5-16 and pt given ativan per protocol. LS CTA. Telemetry shows NSR. She c/o waves of nausea but declined intervention for it. She was up to the BR with SBA and tolerated it fairly well. She does c/o lightheadedness when up on her feet. Daughter was at bedside this evening and appears loving and supportive. Report to MARÍA Hoang.
[2025-01-05 22:12] LABS: Sodium* 122 mmol/L (135-149)
[2025-01-06] VITALS (22 sets, daily range): BP systolic 101–150; BP diastolic 62–100; PULSE 80–103; RESP 12–18; TEMP 35.7–36.8; O2SAT 93–100
--- NOTE | 2025-01-06 02:30 | W.THPRO_ITS ---
Progress Note: A&P Assessment and plan (1) Hyponatremia: Status: Acute Plan Hyponatremia: repeat sodium is 122. Patient is significantly hyponatremic. Started .9%NS continuously. will recheck 4 hours after fluid has started. Telehealth Hospitalist-PN: Sub Subjective Interval History: Lorie Conteh is seen as an Interactive Telehealth visit. Lorie Conteh is a 49 year old male who is Exam Narrative Exam Narrative: Physical Exam GENERAL: ?vital signs reviewed, well developed and nourished, in no distress HEENT: pupils are equal round and reactive to light, extraocular movements are grossly within normal limits and oral mucosa is moist. NECK: Supple without lymphadenopathy or thyromegaly according to nursing staff examination observation HEART: Regular rate and rhythm without any rubs, murmurs, or gallops. LUNGS: Clear to auscultation bilaterally with good air movement throughout ABDOMEN: Observation from nurse assisted exam, abdomen appears soft, nontender, and nondistended with Positive bowel sounds noted. EXTREMITIES: Strength and sensation is observed to be grossly within normal limits in the upper and lower extremities.? No focal strength deficit is observed. SKIN:? Observed warm and dry with color normal Const Vital Signs, click to edit/add: Vital Signs - 24 hr 01/05/25 12:14 01/05/25 13:41 01/05/25 15:20 Temperature 98.0 F 98.0 F 98.0 F Pulse Rate Pulse Rate [Left Pulse Oximeter] Pulse Rate [Pulse Oximeter] 95 Respiratory Rate 16 16 16 Blood Pressure [Left Arm] Blood Pressure [Right Upper Arm] 145/91 H Pulse Oximetry 98 98 98 Oxygen Delivery Method Room Air Room Air Room Air 01/05/25 16:01 01/05/25 16:06 01/05/25 16:59 Temperature 98.5 F 98.5 F Pulse Rate Pulse Rate [Left Pulse Oximeter] 99 99 Pulse Rate [Pulse Oximeter] Respiratory Rate 18 16 16 Blood Pressure [Left Arm] 142/100 H 142/100 H Blood Pressure [Right Upper Arm] Pulse Oximetry 97 98 98 Oxygen Delivery Method Room Air Room Air Room Air 01/05/25 17:30 01/05/25 17:35 01/05/25 17:37 Temperature Pulse Rate 97 Pulse Rate [Left Pulse Oximeter] Pulse Rate [Pulse Oximeter] Respiratory Rate 18 Blood Pressure [Left Arm] Blood Pressure [Right Upper Arm] Pulse Oximetry 94 95 Oxygen Delivery Method Room Air 01/05/25 18:00 01/05/25 18:14 01/05/25 19:30 Temperature 98.0 F 98.0 F Pulse Rate 88 Pulse Rate [Left Pulse Oximeter] 95 92 Pulse Rate [Pulse Oximeter] Respiratory Rate 18 18 Blood Pressure [Left Arm] 128/70 128/70 Blood Pressure [Right Upper Arm] Pulse Oximetry 95 94 Oxygen Delivery Method Room Air Room Air 01/05/25 19:39 01/05/25 20:00 01/05/25 20:00 Temperature 97.9 F 97.9 F 97.9 F Pulse Rate Pulse Rate [Left Pulse Oximeter] 91 99 99 Pulse Rate [Pulse Oximeter] Respiratory Rate 18 18 18 Blood Pressure [Left Arm] 137/82 123/87 123/87 Blood Pressure [Right Upper Arm] Pulse Oximetry 95 95 95 Oxygen Delivery Method Room Air Room Air Room Air 01/05/25 21:00 01/05/25 22:42 01/05/25 23:00 Temperature 97.9 F 97.9 F 98 F Pulse Rate Pulse Rate [Left Pulse Oximeter] 106 H 90 96 Pulse Rate [Pulse Oximeter] Respiratory Rate 18 18 18 Blood Pressure [Left Arm] 129/78 110/64 118/75 Blood Pressure [Right Upper Arm] Pulse Oximetry 95 96 94 Oxygen Delivery Method Room Air Room Air Room Air 01/06/25 00:00 01/06/25 00:00 01/06/25 01:00 Temperature 98 F 98 F Pulse Rate Pulse Rate [Left Pulse Oximeter] 88 88 88 Pulse Rate [Pulse Oximeter] Respiratory Rate 18 18 18 Blood Pressure [Left Arm] 128/74 128/74 114/75 Blood Pressure [Right Upper Arm] Pulse Oximetry 94 94 94 Oxygen Delivery Method Room Air Room Air Room Air 01/06/25 01:10 Temperature Pulse Rate 89 Pulse Rate [Left Pulse Oximeter] Pulse Rate [Pulse Oximeter] Respiratory Rate Blood Pressure [Left Arm] Blood Pressure [Right Upper Arm] Pulse Oximetry Oxygen Delivery Method Labs Labs: Laboratory Results - last 24 hr 01/05/25 01/05/25 01/05/25 12:43 15:46 17:00 WBC 7.11 RBC 4.33 Hgb 13.8 Hct 39.1 MCV 90 MCH 32 MCHC 35 RDW Coeff of Baljeet 12.3 Plt Count 286 Neut % (Auto) 81.5 H Lymph % (Auto) 10.3 L [place] % (Auto) 7.5 Eos % (Auto) 0.3 Baso % (Auto) 0.1 Neut # (Auto) 5.80 Lymph # (Auto) 0.70 L [place] # (Auto) 0.50 Eos # (Auto) 0.02 Baso # (Auto) 0.01 Abs Immat Gran (auto) 0.02 Imm/Tot Granulo (auto) 0.3 INR 1.48 H Sodium 120 L* 124 L* Potassium 5.4 H 4.6 Chloride 86 L 90 L Carbon Dioxide 25 26 Anion Gap 9 8 BUN 10 9 Creatinine 0.5 0.6 Estimated Creat Clear 111.35 92.79 Estimated GFR 114 109 Glucose 179 H 137 H Calcium 9.3 9.7 Total Bilirubin 1.0 AST 56 H ALT 36 H Alkaline Phosphatase 78 Total Protein 7.7 Albumin 4.5 Ur Random Sodium Ethyl Alcohol < 0.01 POC Glucose 127 H 01/05/25 01/05/25 18:22 21:27 WBC RBC Hgb Hct MCV MCH MCHC RDW Coeff of Baljeet Plt Count Neut % (Auto) Lymph % (Auto) [place] % (Auto) Eos % (Auto) Baso % (Auto) Neut # (Auto) Lymph # (Auto) [place] # (Auto) Eos # (Auto) Baso # (Auto) Abs Immat Gran (auto) Imm/Tot Granulo (auto) INR Sodium 122 L* Potassium Chloride Carbon Dioxide Anion Gap BUN Creatinine Estimated Creat Clear Estimated GFR Glucose Calcium Total Bilirubin AST ALT Alkaline Phosphatase Total Protein Albumin Ur Random Sodium 64 Ethyl Alcohol POC Glucose Telehealth: Statement Statement Telehealth Visit: Today's History and Physical is provided via interactive telehealth by Elin Nieto MD.? Patient is located at [facility].? Provider is located at [place].? Nursing staff assisted with the patient's exam. The visit being done today meets criteria for a telehealth visit and the patient or patient?s parent/guardian is aware the visit is a telehealth visit.
[2025-01-06 02:31] LABS: Sodium* 125 mmol/L (135-149)
[2025-01-06] MEDS: SODIUM CHLORIDE 0.9 % (FLUSH) 10 ML SYRINGE 5 ML IVF ×2 (02:51→21:17)
[2025-01-06] MEDS: LEVOTHYROXINE 100 MCG TABLET PO (06:43)
[2025-01-06] MEDS: OMEPRAZOLE 20 MG CAPSULE DR 40 MG PO (06:43)
[2025-01-06 06:47] LABS: Hematocrit 40.9 % (33.0-51.0); Hemoglobin* 14.0 gm/dL (12.0-16.0); Immature Granulocytes Abs Auto 0.01 K/uL (0.00-0.30); Immature Granulocytes Pct Auto 0.1 %; Lymphocytes Absolute Auto 1.70 K/uL (0.90-2.90); Mean Corpuscular HGB Conc 34 gm/dL (32-36); Mean Corpuscular Hemoglobin 32 pg (26-34); Mean Corpuscular Volume 93 fL (80-100); RDW Coefficient of Variation % 12.5 % (11.5-15.5); Red Blood Count 4.41 m/uL (4.00-5.20); White Blood Count* 6.95 K/uL (4.50-11.00)
[2025-01-06 06:48] LABS: Slide Review Reflex No
[2025-01-06 07:02] LABS: Sodium* 126 mmol/L (135-149)
--- NOTE | 2025-01-06 07:42 | PC.NURSE ---
Pt pleasant and cooperative. CIWA's went from 11 at start of shift to 1 at end of shift. Received 1 dose of 2mg of Ativan. VSS. During the night pt complained pain between shoulder blades and then going part way down left arm. Oswaldo called and ordered 1 dose of Torodal 15mg this was given and pt slept for 3 hrs straight with no c/o pain. She woke up at 6am and c/o same pain. Oswaldo notified of this and chest xray and oxycodone ordered. Results on chest xray still not back. Pt is sitting in chair at this time.
[2025-01-06 09:03] LABS: Free T4 Free Thyroxine* 1.06 ng/dL (0.70-1.85)
[2025-01-06] MEDS: FOLIC ACID 1 MG TABLET PO (09:46)
[2025-01-06] MEDS: AMLODIPINE 10 MG TABLET PO (09:46)
[2025-01-06] MEDS: FLUOXETINE HCL 20 MG CAPSULE 40 MG PO (09:46)
[2025-01-06] MEDS: METOPROLOL SUCCINATE (XL) 100 MG TAB PO (09:46)
[2025-01-06 10:51] LABS: Sodium* 124 mmol/L (135-149)
--- NOTE | 2025-01-06 11:24 | PC.SOCIAL ---
Addendum entered by Jeri Espinosa, BENDING FRAME OPERATOR 01/06/25 11:38: On 01/05/25, confirmed with pt that both of her emergency contacts in chart, Liz Gross and Suellen Wilburn, are aware of her substance use and desire for treatment and information can be shared with them as needed to arrange for care. Pt requested Suellen be contacted first regarding discharge planning decisions if pt needs assistance in discharge planning. Original Note: Social work: Late entry: On 01/05/25, met with pt in ED at her request prior to admission to med/surg unit. Pt shared that her MA benefits had ended on 01/04/25 because she had failed to renew her MA. She is now concerned about having a bill from this hospital for this admission. Shared with pt that MA currently goes back 3 months from application, so as long as she still qualifies and received MA with a new application, and she completes it within 3 months of this hospitalization, it is expected the MA would cover this stay. Pt has worked with the [facility] MNSure navigator in the past and plans to work with her again to get her new MA application in. Pt also shared that she wants substance treatment placement from the hospital if possible as she wants to stop drinking and does not feel she can do it on her own. new car make ready worker normalized the need for a program for substance treatment. Shared with pt information on the Rule 25 screening process needed prior to substance treatment placement and how a lack of available beds for treatment often means a patient is discharged home from the hospital with information on programs and needs to follow up from home. Pt understands and is appreciative of any assistance social workers can provide to get her into a program as soon as possible. Pt gave this social media marketer verbal permission to contact [facility] [employer] Dem[employer]ator to confirm what she needs to do to get her MA reinstated and for coverage of substance treatment. Called Mary Velez at [facility] who confirmed pt needs to fill out a new application for MA and that if she receives MA it will go back and cover 3 months prior of medical care. [facility] does not have a way to expedite this process for a patient in the hospital, and Mary suggested pt could fill out the application and submit from the hospital to get the process started. Mary confirmed [facility] no longer completed Rule 25 assessments and these are done by the individual programs providing substance treatment. new car make ready worker to follow up as needed.
--- NOTE | 2025-01-06 12:01 | PM.IMPN1 ---
Assessment and Plan Assessment and plan (1) Alcohol withdrawal: Problem comment: Endorses drinking 12 beers/day. No reported history of withdrawal. Presents with elevated CIWA scores less than 24 hours since last EtOH (21:00 01/04). Family history of alcoholism. Interested in treatment. She complains of low chest/upper abd pain, but no signs of GIB at this time. Certainly could have ulcer or pancreatitis. Plan: Monitor on telemetry Seizure precautions Check LFTs, INR, lipase. Trend Hgb Replete thiamine, folate Continue PPI, hold xarelto for now given risk for bleeding and currently in NSR CIWA protocol with lorazepam product manager financial services appreciated, will need a Rule 25 assessment 01/06 CIWA scores remain 1. Oral Ativan as needed given current IV shortage Status: Acute (2) Alcohol dependence: Problem comment: Appreciate social worker palliative care assistance with chemical dependency resources Status: Acute (3) Hyponatremia: Problem comment: Euvolemic hyponatremia, likely potomania. Appears mildly dry on exam. Also consider thyroid dysfunction. Initial sodium is 120. Goal is less than or equal to 128 by 13:30 on 01/06. Plan: Labs- check TSH, serum osm, urine osm and urine sodium. Monitor Sodium Q4H Fluid restrict to 1500 (consider 1000 if sluggish to improve) OK for diet for now. Will give very low dose mIVF with NS at 50 ml/hr OK to continue SSRI as etiology less likely 08/09 SSRI 01/06 sodium 120 > 124 > 122 > 125 > 126 > 124. Stop DDAVP. Ok to start oral sodium replacement at lunch. Continue fluid restriction for now, regular diet. Status: Acute (4) Obstructive sleep apnea syndrome: Problem comment: Monitor with continuous pulse oximetry Status: Acute (5) Nonspecific chest pain: Problem comment: Certainly does not sound cardiac in nature. Could have likely gastritis, PUD, pancreatitis or MSK issue. -Monitor on tele -Check lipase and trend hgb -Consider outpatient GI referral Overnight, sounds pleuritic as described by patient Status: Acute (6) Hypothyroidism: Problem comment: Check TSH, continue levothyroxine TSH 4.45, free T4 1.06 Ongoing management with PCP Status: Acute (7) Hypertension: Problem comment: Currently mildly hypertensive, likely secondary to EtOH withdrawal. -Continue home amlodipine and metoprolol -Hold Valsartan given hyponatremia Status: Acute (8) Gastroesophageal reflux disease: Problem comment: Continue oral omeprazole for now, if any evidence of bleeding, will need to step up to IV pantoprazole Status: Acute (9) Depression: Problem comment: Continue SSRI Status: Acute (10) Anxiety disorder: Problem comment: Has history of intolerance to Paxil, but I have concern that fluoxetine may be too activating. Very difficult to determine given acute withdrawal. Could consider transition to less activating SSRI as outpatient if anxiety continues to be bothersome Status: Acute (11) Diabetes mellitus, type II: Problem comment: Patient reports well controlled A1C with recent 30 lbs weight loss on Tirzepatide. Will hold off on accuchecks for now, but will order if glucose on am BNP is very elevated. Status: Acute (12) Pleuritic chest pain: Problem comment: Sharp, worse with deep breathing or chest wall movement Troponin <0.01, EKG NSR Improved with initial dose of Toradol, continue with anti-inflammatory p.r.n. Status: Acute Plan Possible discharge 1-2 days, monitoring sodium, continued CIWA Total Time Spent Total Time Spent: Today I spent 45 minutes seeing the patient, reviewing Expanse and EPIC notes/diagnostics, discussing the care plan with our care time that includes social work, PT/OT, pharmacy, RT, senior living and documenting my impressions and plan in the medical record. Subjective Date Seen: 01/06/25 Interval history: Patient is seen sitting up in a chair this morning. Reports feeling better. Denies headache or dizziness. Awoke this morning with sharp pains radiating to the left side of the chest, worse with deep breathing or chest movement. No pain radiating into the arm or neck. Denies shortness of breath. Remains afebrile. Vitally stable. No recent cough or URI symptoms. Denies trauma or injury. Previous rib fractures were on the right side and she has no pain there. CIWA scores have remained 1. Patient remains motivated for rehab. Trending sodium q.4 hours, 126 this morning. Exam Narrative: Exam Narrative: PHYSICAL EXAM General: Pleasant, conversant, NAD HEENT: Normocephalic, atraumatic, sclera white, EOMI, oral mucosa moist Cardiovascular: RRR, S1S2. No pitting edema Pulmonary: CTA bilaterally without rhonchi, rales, expiratory wheezes. No dyspnea on room air. Deep breathing does elicit sharp pain. Neurological: Alert, answering questions appropriately, cranial nerves intact, no focal findings Extremities: No gross joint deformity or swelling. AROMI. Neurovascularly intact Skin: Warm, dry. Const: Vital Signs, click to edit/add: Vital Signs - 24 hr 01/05/25 12:14 01/05/25 13:41 01/05/25 15:20 Temperature 98.0 F 98.0 F 98.0 F Pulse Rate Pulse Rate [Left P ulse Oximeter] Pulse Rate [Pulse Oximeter] 95 Respiratory Rate 16 16 16 Blood Pressure [Le ft Arm] Blood Pressure [Ri ght Upper Arm] 145/91 H Pulse Oximetry 98 98 98 Oxygen Delivery Me thod Room Air Room Air Room Air 01/05/25 16:01 01/05/25 16:06 01/05/25 16:59 Temperature 98.5 F 98.5 F Pulse Rate Pulse Rate [Left P ulse Oximeter] 99 99 Pulse Rate [Pulse Oximeter] Respiratory Rate 18 16 16 Blood Pressure [Le ft Arm] 142/100 H 142/100 H Blood Pressure [Ri ght Upper Arm] Pulse Oximetry 97 98 98 Oxygen Delivery Ks thod Room Air Room Air Room Air 01/05/25 17:30 01/05/25 17:35 01/05/25 17:37 Temperature Pulse Rate 97 Pulse Rate [Left P ulse Oximeter] Pulse Rate [Pulse Oximeter] Respiratory Rate 18 Blood Pressure [Le ft Arm] Blood Pressure [Ri ght Upper Arm] Pulse Oximetry 94 95 Oxygen Delivery Ks thod Room Air 01/05/25 18:00 01/05/25 18:14 01/05/25 19:30 Temperature 98.0 F 98.0 F Pulse Rate 88 Pulse Rate [Left P ulse Oximeter] 95 92 Pulse Rate [Pulse Oximeter] Respiratory Rate 18 18 Blood Pressure [Le ft Arm] 128/70 128/70 Blood Pressure [Ri ght Upper Arm] Pulse Oximetry 95 94 Oxygen Delivery Me thod Room Air Room Air 01/05/25 19:39 01/05/25 20:00 01/05/25 20:00 Temperature 97.9 F 97.9 F 97.9 F Pulse Rate Pulse Rate [Left P ulse Oximeter] 91 99 99 Pulse Rate [Pulse Oximeter] Respiratory Rate 18 18 18 Blood Pressure [Le ft Arm] 137/82 123/87 123/87 Blood Pressure [Ri ght Upper Arm] Pulse Oximetry 95 95 95 Oxygen Delivery Me thod Room Air Room Air Room Air 01/05/25 21:00 01/05/25 22:42 01/05/25 23:00 Temperature 97.9 F 97.9 F 98 F Pulse Rate Pulse Rate [Left P ulse Oximeter] 106 H 90 96 Pulse Rate [Pulse Oximeter] Respiratory Rate 18 18 18 Blood Pressure [Le ft Arm] 129/78 110/64 118/75 Blood Pressure [Ri ght Upper Arm] Pulse Oximetry 95 96 94 Oxygen Delivery Me thod Room Air Room Air Room Air 01/06/25 00:00 01/06/25 00:00 01/06/25 01:00 Temperature 98 F 98 F Pulse Rate Pulse Rate [Left P ulse Oximeter] 88 88 88 Pulse Rate [Pulse Oximeter] Respiratory Rate 18 18 18 Blood Pressure [Le ft Arm] 128/74 128/74 114/75 Blood Pressure [Ri ght Upper Arm] Pulse Oximetry 94 94 94 Oxygen Delivery Me thod Room Air Room Air Room Air 01/06/25 01:10 01/06/25 02:00 01/06/25 03:00 Temperature 97.8 F 97.8 F Pulse Rate 89 Pulse Rate [Left P ulse Oximeter] 103 H 85 Pulse Rate [Pulse Oximeter] Respiratory Rate 18 18 Blood Pressure [Le ft Arm] 111/67 101/69 Blood Pressure [Ri ght Upper Arm] Pulse Oximetry 97 95 Oxygen Delivery Me thod Room Air 01/06/25 03:00 01/06/25 04:00 01/06/25 04:15 Temperature 97.8 F 97.8 F Pulse Rate 89 Pulse Rate [Left P ulse Oximeter] 94 90 Pulse Rate [Pulse Oximeter] Respiratory Rate 18 12 Blood Pressure [Le ft Arm] 109/74 Blood Pressure [Ri ght Upper Arm] Pulse Oximetry 95 93 Oxygen Delivery Me thod Room Air 01/06/25 06:00 01/06/25 07:00 01/06/25 08:00 Temperature 98.3 F Pulse Rate 94 Pulse Rate [Left P ulse Oximeter] 96 92 Pulse Rate [Pulse Oximeter] Respiratory Rate 18 16 Blood Pressure [Le ft Arm] 102/62 150/100 H Blood Pressure [Ri ght Upper Arm] Pulse Oximetry 98 97 Oxygen Delivery Me thod Room Air Room Air 01/06/25 09:48 Temperature Pulse Rate Pulse Rate [Left P ulse Oximeter] 99 Pulse Rate [Pulse Oximeter] Respiratory Rate 18 Blood Pressure [Le ft Arm] 137/85 Blood Pressure [Ri ght Upper Arm] Pulse Oximetry 97 Oxygen Delivery Me thod Labs Labs: Laboratory Results - last 24 hr 01/05/25 01/05/25 01/05/25 12:43 15:46 17:00 WBC 7.11 RBC 4.33 Hgb 13.8 Hct 39.1 MCV 90 MCH 32 MCHC 35 RDW Coeff of Baljeet 12.3 Plt Count 286 Neut % (Auto) 81.5 H Lymph % (Auto) 10.3 L [place] % (Auto) 7.5 Eos % (Auto) 0.3 Baso % (Auto) 0.1 Neut # (Auto) 5.80 Lymph # (Auto) 0.70 L [place] # (Auto) 0.50 Eos # (Auto) 0.02 Baso # (Auto) 0.01 Abs Immat Gran (auto) 0.02 Imm/Tot Granulo (auto) 0.3 INR 1.48 H Sodium 120 L* 124 L* Potassium 5.4 H 4.6 Chloride 86 L 90 L Carbon Dioxide 25 26 Anion Gap 9 8 BUN 10 9 Creatinine 0.5 0.6 Estimated Creat Clear 111.35 92.79 Estimated GFR 114 109 Glucose 179 H 137 H Calcium 9.3 9.7 Total Bilirubin 1.0 AST 56 H ALT 36 H Alkaline Phosphatase 78 Troponin I Total Protein 7.7 Albumin 4.5 Lipase TSH Free T4 Ur Random Sodium Ethyl Alcohol < 0.01 Lab Acknowledgement POC Glucose 127 H 01/05/25 01/05/25 01/06/25 18:22 21:27 02:14 WBC RBC Hgb Hct MCV MCH MCHC RDW Coeff of Baljeet Plt Count Neut % (Auto) Lymph % (Auto) [place] % (Auto) Eos % (Auto) Baso % (Auto) Neut # (Auto) Lymph # (Auto) [place] # (Auto) Eos # (Auto) Baso # (Auto) Abs Immat Gran (auto) Imm/Tot Granulo (auto) INR Sodium 122 L* 125 L Potassium Chloride Carbon Dioxide Anion Gap BUN Creatinine Estimated Creat Clear Estimated GFR Glucose Calcium Total Bilirubin AST ALT Alkaline Phosphatase Troponin I Total Protein Albumin Lipase TSH Free T4 Ur Random Sodium 64 Ethyl Alcohol Lab Acknowledgement POC Glucose 01/06/25 01/06/25 01/06/25 06:35 08:11 08:13 WBC 6.95 RBC 4.41 Hgb 14.0 Hct 40.9 MCV 93 MCH 32 MCHC 34 RDW Coeff of Baljeet 12.5 Plt Count 241 Neut % (Auto) 64.6 Lymph % (Auto) 24.5 [place] % (Auto) 9.5 Eos % (Auto) 1.0 Baso % (Auto) 0.3 Neut # (Auto) 4.49 Lymph # (Auto) 1.70 [place] # (Auto) 0.70 Eos # (Auto) 0.07 Baso # (Auto) 0.02 Abs Immat Gran (auto) 0.01 Imm/Tot Granulo (auto) 0.1 INR Sodium 126 L Potassium Chloride Carbon Dioxide Anion Gap BUN Creatinine Estimated Creat Clear Estimated GFR Glucose Calcium Total Bilirubin AST ALT Alkaline Phosphatase Troponin I < 0.01 Total Protein Albumin Lipase 199 TSH 4.450 H Free T4 1.06 Ur Random Sodium Ethyl Alcohol Lab Acknowledgement Test Added Test Added POC Glucose 01/06/25 10:25 WBC RBC Hgb Hct MCV MCH MCHC RDW Coeff of Baljeet Plt Count Neut % (Auto) Lymph % (Auto) [place] % (Auto) Eos % (Auto) Baso % (Auto) Neut # (Auto) Lymph # (Auto) [place] # (Auto) Eos # (Auto) Baso # (Auto) Abs Immat Gran (auto) Imm/Tot Granulo (auto) INR Sodium 124 L* Potassium Chloride Carbon Dioxide Anion Gap BUN Creatinine Estimated Creat Clear Estimated GFR Glucose Calcium Total Bilirubin AST ALT Alkaline Phosphatase Troponin I Total Protein Albumin Lipase TSH Free T4 Ur Random Sodium Ethyl Alcohol Lab Acknowledgement POC Glucose
[2025-01-06] MEDS: ACETAMINOPHEN 325 MG TABLET PO (12:05)
[2025-01-06] MEDS: SODIUM CHLORIDE 1 GM TABLET PO ×2 (12:10→17:32)
--- NOTE | 2025-01-06 14:08 | PC.SOCIAL ---
Met with pt. to offer chemical dependency resources and insurance information. Pt. voluntarily came in to seek help for her alcohol withdrawal and is interested in treatment. Pt. prefers CD treatment locally. Gave patient a list of area outpatient chemical treatment options. Pt. plans to call and seek treatment as close to [place] as possible. Explained that pt. will need to completed a comprehensive assessment with the CD treatment facility she chooses. Pt. had medical assistance and it lapsed on 01/04/2025. Assisted pt. in filling out a new [facility] medical assistance application and faxed the completed application to [facility] at [phone]. Pt. also was open to AA support and a list of local AA support groups in [place] and [place] was given.
[2025-01-06 14:49] LABS: Sodium* 126 mmol/L (135-149)
[2025-01-06] MEDS: THIAMINE 100 MG TABLET PO (17:32)
[2025-01-06 18:51] LABS: Sodium* 130 mmol/L (135-149)
--- NOTE | 2025-01-06 19:24 | PC.NURSE ---
End of shift Note: Patient has been up and about in her room indep. Did take a shower today. Complained of left side and back pain see MAR for medication given. has not required any ativan for the Ciwa protocol. report given to next shift.
[2025-01-06 21:21] LABS: Sodium* 130 mmol/L (135-149)
[2025-01-07] VITALS (7 sets, daily range): BP systolic 110–150; BP diastolic 81–99; PULSE 84–98; RESP 14–18; TEMP 36.4; O2SAT 97–98
[2025-01-07] MEDS: LEVOTHYROXINE 100 MCG TABLET PO (05:55)
[2025-01-07] MEDS: OMEPRAZOLE 20 MG CAPSULE DR 40 MG PO (05:55)
[2025-01-07] MEDS: SODIUM CHLORIDE 0.9 % (FLUSH) 10 ML SYRINGE 5 ML IVF ×2 (06:23→09:25)
[2025-01-07 06:28] LABS: Hematocrit 40.4 % (33.0-51.0); Hemoglobin* 13.6 gm/dL (12.0-16.0); Immature Granulocytes Abs Auto 0.01 K/uL (0.00-0.30); Immature Granulocytes Pct Auto 0.2 %; Lymphocytes Absolute Auto 1.67 K/uL (0.90-2.90); Mean Corpuscular HGB Conc 34 gm/dL (32-36); Mean Corpuscular Hemoglobin 32 pg (26-34); Mean Corpuscular Volume 94 fL (80-100); RDW Coefficient of Variation % 12.5 % (11.5-15.5); Red Blood Count 4.31 m/uL (4.00-5.20); White Blood Count* 6.42 K/uL (4.50-11.00)
[2025-01-07 06:31] LABS: Slide Review Reflex No
[2025-01-07 06:38] LABS: Chloride* 94 mmol/L (96-114); Potassium* 4.2 mmol/L (3.6-5.1); Sodium* 128 mmol/L (135-149)
[2025-01-07 06:41] LABS: Anion Gap 5 mEq/L (7-15); Blood Urea Nitrogen* 14 mg/dL (7-30); Carbon Dioxide* 29 mmol/L (20-32); Creatinine* 0.5 mg/dL (0.5-1.5); Est. Creatinine Clearance* 111.35; Estimated Glomerular Filt Rate 114 ml/min
[2025-01-07 06:42] LABS: Calcium* 9.6 mg/dL (8.4-10.6); Glucose* 143 mg/dL (60-115)
--- NOTE | 2025-01-07 07:22 | PC.NURSE ---
Arrived to find the patient alert and oriented and vitally stable. An assessment of the patient?s current health has found that she has had trembling hands when arms are stretched outright. They are independent in their room. They are adhering to their fluid restriction but are desirous to be removed from it. No other findings of note at that time. In the morning around 6 the patient woke up in great pain; visibly, greatly distressed and sobbing in sadness. We spoke for a small time about what she was feeling and I determined she has an overwhelming sense of a loss of control. Specifically, an inability to control her pain which has never felt worse. PRN pain medications given. Last finding of note was possible infiltration of the left IV. It caused pain to flush it and the tissue seemed somewhat puffy in the area below the entry point. Removed.?Vitally stable at time of transfer.
[2025-01-07] MEDS: FOLIC ACID 1 MG TABLET PO (09:24)
[2025-01-07] MEDS: ACETAMINOPHEN 325 MG TABLET PO (09:24)
[2025-01-07] MEDS: AMLODIPINE 10 MG TABLET PO (09:24)
[2025-01-07] MEDS: METOPROLOL SUCCINATE (XL) 100 MG TAB PO (09:24)
[2025-01-07] MEDS: FLUOXETINE HCL 20 MG CAPSULE 40 MG PO (09:24)
[2025-01-07] MEDS: SODIUM CHLORIDE 1 GM TABLET PO ×2 (09:25→12:11)
--- NOTE | 2025-01-07 10:07 | PM.DS1 ---
DS: Providers Provider Date Seen: 01/07/25 Date of admission: 01/05/25 16:58 Primary care physician: Stephanie Hubbard PA-C Admitting Clinician: Heidi Patel MD Consults: 01/05/25 16:21 Consult to Small [employer] Facer [CONS] Routine Comment: Reason for Consult:: Social Service Consult 01/05/25 16:58 Consult to Occupational Therapy [CONS] Routine Comment: Reason(s) for OT Consult:: Evaluate and Treat Any Restrictions?:: No Restrictions Consult to Physical Therapy [CONS] Routine Comment: Reason(s) for PT Consult:: Evaluate and Treat Any Restrictions?:: No Restrictions Consult to Small Stock Facer [CONS] Routine Comment: Reason for Consult:: Social Service Consult Attending Physician on discharge: MORENITA Livingston PA-C [facility] Critical [facility] Hospitalist Date of Discharge: 01/07/25 DS: Diagnosis Discharge Diagnosis (1) Alcohol withdrawal: Status: Acute Problem details: Endorses drinking 12 beers/day. No reported history of withdrawal. Presents with elevated CIWA scores less than 24 hours since last EtOH (21:00 01/04). Family history of alcoholism. Interested in treatment. She complains of low chest/upper abd pain, but no signs of GIB at this time. Certainly could have ulcer or pancreatitis. Plan: Monitor on telemetry Seizure precautions Check LFTs, INR, lipase. Trend Hgb Replete thiamine, folate Continue PPI, hold xarelto for now given risk for bleeding and currently in NSR CIWA protocol with lorazepam office services associate appreciated, will need a Rule 25 assessment 01/06 CIWA scores remain 1. Oral Ativan as needed given current IV shortage Prior to discharge, CIWA scores have remained 0. (2) Alcohol dependence: Status: Acute Problem details: Appreciate social human services assistants assistance with chemical dependency resources Upon discharge, patient has support of friends and family at home. office services associate has provided her with resources for chemical dependency rehab. Her MA application has been resubmitted. (3) Hyponatremia: Status: Acute Problem details: Euvolemic hyponatremia, likely potomania. Appears mildly dry on exam. Also consider thyroid dysfunction. Initial sodium is 120. Goal is less than or equal to 128 by 13:30 on 01/06. Plan: Labs- check TSH, serum osm, urine osm and urine sodium. Monitor Sodium Q4H Fluid restrict to 1500 (consider 1000 if sluggish to improve) OK for diet for now. Will give very low dose mIVF with NS at 50 ml/hr OK to continue SSRI as etiology less likely 2/2 SSRI 7/2 sodium 120 > 124 > 122 > 125 > 126 > 124. Stop DDAVP. Ok to start oral sodium replacement at lunch. Continue fluid restriction for now, regular diet. Sodium on discharge is 128. Discussed continuing to avoid free water over the long holiday weekend, substituting electrolyte drinks instead. Outpatient follow-up with PCP next week with repeat BMP. (4) Obstructive sleep apnea syndrome: Status: Acute Problem details: Monitor with continuous pulse oximetry Ongoing outpatient management (5) Nonspecific chest pain: Status: Acute Problem details: Certainly does not sound cardiac in nature. Could have likely gastritis, PUD, pancreatitis or MSK issue. -Monitor on tele -Check lipase and trend hgb -Consider outpatient GI referral Patient reported history of intermittent episodes, previously managed with ibuprofen and Tylenol. (6) Hypothyroidism: Status: Acute Problem details: Check TSH, continue levothyroxine TSH 4.45, free T4 1.06 Ongoing management with PCP (7) Hypertension: Status: Acute Problem details: Currently mildly hypertensive, likely secondary to EtOH withdrawal. -Continue home amlodipine and metoprolol -Hold Valsartan given hyponatremia Resuming home medications on discharge (8) Gastroesophageal reflux disease: Status: Acute Problem details: Continue oral omeprazole for now, if any evidence of bleeding, will need to step up to IV pantoprazole (9) Depression: Status: Acute Problem details: Continue SSRI (10) Anxiety disorder: Status: Acute Problem details: Has history of intolerance to Paxil, but I have concern that fluoxetine may be too activating. Very difficult to determine given acute withdrawal. Could consider transition to less activating SSRI as outpatient if anxiety continues to be bothersome (11) Diabetes mellitus, type II: Status: Acute Problem details: Patient reports well controlled A1C with recent 30 lbs weight loss on Tirzepatide. Will hold off on accuchecks for now, but will order if glucose on am BNP is very elevated. (12) Pleuritic chest pain: Status: Acute Problem details: Sharp, worse with deep breathing or chest wall movement Troponin <0.01, EKG NSR Improved with initial dose of Toradol, continue with anti-inflammatory p.r.n. Patient reported history of intermittent episodes in the past, previously treated with ibuprofen and Tylenol. (13) Atrial fibrillation: Status: Acute Problem details: Continued on beta-yinka. Resume Xarelto on discharge. Advised to avoid p.r.n. NSAIDs DS: Summary Hospital Course Hospital Course: Course of care and details as noted above. Sodium improved to 128 prior to discharge. Patient will follow-up outpatient rehab resources. Continues to be motivated to remain sober. Remainder of chronic medical comorbidities were monitored and managed with home medications. Status at Discharge Functional status at discharge: independent ambulation Overall status at discharge: patient is back to baseline Time Spent with Patient Time attestation: Total time spent providing and/or coordinating discharge services: Time spent: Greater than 30 minutes Exam Narrative: Exam Narrative: PHYSICAL EXAM General: Pleasant, conversant, NAD Cardiovascular: RRR Pulmonary: No dyspnea Neurological: Alert, answering questions appropriately Skin: Warm, dry. Const: Vital Signs, click to edit/add: Vital Signs - 24 hr 01/06/25 12:00 01/06/25 12:03 01/06/25 13:53 Temperature 96.3 F L 96.3 F L 97.8 F Pulse Rate Pulse Rate [Left P ulse Oximeter] 89 89 88 Respiratory Rate 18 18 18 Blood Pressure [Le ft Arm] 125/71 125/71 134/84 Pulse Oximetry 97 97 [facility] Room Air Room Air 01/06/25 15:00 01/06/25 15:03 01/06/25 16:00 Temperature 97.8 F 97.8 F Pulse Rate 90 Pulse Rate [Left P ulse Oximeter] 80 80 Respiratory Rate 18 18 Blood Pressure [Le ft Arm] 105/76 105/76 Pulse Oximetry 97 97 [facility] Room Air 01/06/25 16:09 01/06/25 19:30 01/06/25 20:10 Temperature 97.8 F Pulse Rate 91 Pulse Rate [Left P ulse Oximeter] 90 Respiratory Rate 18 Blood Pressure [Le ft Arm] 108/78 Pulse Oximetry 98 96 [facility] 01/06/25 20:15 01/06/25 23:30 01/06/25 23:30 Temperature 97.8 F 97.2 F L 97.2 F L Pulse Rate Pulse Rate [Left P ulse Oximeter] 90 85 85 Respiratory Rate 18 16 16 Blood Pressure [Le ft Arm] 108/78 112/89 112/89 Pulse Oximetry 96 98 98 Oxygen Delivery Me thod Room Air Room Air Room Air 01/07/25 03:45 01/07/25 03:50 01/07/25 03:53 Temperature 97.6 F 97.6 F Pulse Rate 95 Pulse Rate [Left P ulse Oximeter] 89 89 Respiratory Rate 14 14 Blood Pressure [Le ft Arm] 110/81 110/81 Pulse Oximetry 98 98 Oxygen Delivery Me thod Room Air Room Air 01/07/25 07:00 01/07/25 08:00 01/07/25 09:19 Temperature Pulse Rate 84 Pulse Rate [Left P ulse Oximeter] 98 98 Respiratory Rate 18 14 Blood Pressure [Le ft Arm] 118/84 Pulse Oximetry 98 Oxygen Delivery Me thod Room Air DS: Data Data Completed and Pending Labs on day of discharge: Labs from last 24 hours 01/07/25 01/06/25 01/06/25 06:18 20:57 18:29 WBC 6.42 RBC 4.31 Hgb 13.6 Hct 40.4 MCV 94 MCH 32 MCHC 34 RDW Coeff of Baljeet 12.5 Plt Count 243 Neut % (Auto) 60.6 Lymph % (Auto) 26.0 [place] % (Auto) 10.4 Eos % (Auto) 2.5 Baso % (Auto) 0.3 Neut # (Auto) 3.89 Lymph # (Auto) 1.67 [place] # (Auto) 0.70 Eos # (Auto) 0.16 Baso # (Auto) 0.02 Abs Immat Gran (auto) 0.01 Imm/Tot Granulo (auto) 0.2 Sodium 128 L 130 L 130 L Potassium 4.2 Chloride 94 L Carbon Dioxide 29 Anion Gap 5 L BUN 14 Creatinine 0.5 Estimated Creat Clear 111.35 Estimated GFR 114 Glucose 143 H Calcium 9.6 01/06/25 01/06/25 14:30 10:25 WBC RBC Hgb Hct MCV MCH MCHC RDW Coeff of Baljeet Plt Count Neut % (Auto) Lymph % (Auto) [place] % (Auto) Eos % (Auto) Baso % (Auto) Neut # (Auto) Lymph # (Auto) [place] # (Auto) Eos # (Auto) Baso # (Auto) Abs Immat Gran (auto) Imm/Tot Granulo (auto) Sodium 126 L 124 L* Potassium Chloride Carbon Dioxide Anion Gap BUN Creatinine Estimated Creat Clear Estimated GFR Glucose Calcium Discharge Plan Discharge Disposition: Home, Self-Care Date of Admission: 01/05/25 16:58 Attending Provider on Discharge: Natalya Parikh Primary Care Provider: Stephanie Hubbard Condition: Stable Anticipated Discharge Date/Time: 01/07/25 10:03 Discharge Medications: New folic acid 1 mg Tablet 1 mg PO DAILY Qty: 30 0RF Continued metoprolol succinate 100 mg tablet extended release 24 hr 100 mg PO DAILY Qty: 90 1RF amlodipine 10 mg tablet 10 mg PO DAILY Qty: 90 1RF magnesium citrate 100 mg tablet 100 mg PO QHS calcium carbonate [Oyster Shell Calcium] 500 mg calcium (1,250 mg) tablet 500 mg PO HS potassium gluconate 550 mg (90 mg) tablet 550 mg PO DAILY vitamin B complex Tablet 1 tab PO DAILY fluoxetine 40 mg capsule 40 mg PO DAILY levothyroxine 100 mcg tablet 100 mcg PO DAILY omeprazole 20 mg tablet,delayed release (DR/EC) 20 mg PO DAILY Xarelto 20 mg tablet 20 mg PO DAILY Rx Instructions: must administer with evening meal Mounjaro 10 mg/0.5 mL pen injector 10 mg subcut Q7D Rx Instructions: TAKES MONDAYS valsartan 160 mg tablet 160 mg PO BID Qty: 180 1RF Discharge Orders: Discharge Order (Routine); Ordered 01/07/25 Ordered By: Natalya Parikh Patient Education: Folic Acid (By mouth), Alcohol Withdrawal (DC) Additional Instructions: CONTINUE ELECTROLYTE REPLACEMENT OVER THE HOLIDAY . YOU SHOULD HAVE A BMP RECHECKED WITH YOUR PCP NEXT WEEK. CONTINUE FOLIC ACID ONCE DAILY FOR AT LEAST THE NEXT 30 DAYS. AVOID NSAIDs YOU ARE ON XARELTO, INSTEAD USING ICE/HEAT, LIDOCAINE PATCHES, TYLENOL NEEDED Activity Level: No Restrictions and Activity as Tolerated Discharge Diet: Diabetic Follow Up Appointments: Stephanie Hubbard PA-C [Primary Care Provider, Family Practice] - 01/14/25 9:00 am Referral Note: [facility] for post hospital follow-up. You will need lab work done at this appointment Forms: [employer] Info Instructions
[2025-01-07] MEDS: VALSARTAN 80 MG TABLET 160 MG PO (11:49)
--- NOTE | 2025-01-07 12:29 | PC.NURSE ---
Nursing Care Hours: [id number] Pt this shift calm and cooperative, alert and oriented. Pain to left side ribs 6/10, treated per eMAR. VSS. CIWA 1-4. Slight tremor to bilat hands. Eating and drinking, independent in the room. IV removed for discharge. Discharge instructions went over with pt and pt friend. Pt ambulated off the unit in stable condition.
[2025-01-07 13:13] LABS: Free T3 3.7 pg/mL (2.5-4.3)
== END 2025-01-07 12:25 | disposition home or self-care (01) | DRG 897 ==
LOC: ED 14:57 → MEDSURG 15:46
PROVIDERS: Internal Medicine; Physician Assistant; Admitting Provider Family Medicine; Emergency Provider Family Medicine; PCP Physician Assistant Medical; Visit Provider Family Medicine
DX: F10.239 Alcohol dependence with withdrawal, unspecified (principal); E87.1 Hypo-osmolality and hyponatremia; Z59.19 Other inadequate housing; R07.81 Pleurodynia; Z77.120 Contact with and (suspected) exposure to mold (toxic); Y90.0 Blood alcohol level of less than 20 mg/100 ml; E11.65 Type 2 diabetes mellitus with hyperglycemia; Z79.85 Long-term (current) use of injectable non-insulin antidiabetic drugs; I48.0 Paroxysmal atrial fibrillation; Z79.01 Long term (current) use of anticoagulants; R07.89 Other chest pain; G47.33 Obstructive sleep apnea (adult) (pediatric); I10 Essential (primary) hypertension; F32.A Depression, unspecified; F41.9 Anxiety disorder, unspecified; E03.9 Hypothyroidism, unspecified; Z87.891 Personal history of nicotine dependence
CPT/HCPCS: 36415; 71046; 80048; 80053; 82077; 82947; 83690; 83930; 83935; 84295; 84300; 84439; 84443; 84481; 84484; 85025; 85610; 93005; 94761; 97161; 97165; 99284; 99285; A9270; J1885; J2060; J2597; J7030